=== PATIENT | female | born 1965 | race Caucasian/White ===

== ENCOUNTER 2016-08-27 07:19 | Emergency (ER) | payer OTHER ==
[~2016-08-27] VITALS: Ht 147.3 cm; Wt 62.6 kg
[~2016-08-27 07:19] MED LIST: IBU800 MG PO; MOBIC15 MG PO; MOTRIN800 MG PO; PROAIR HFA0.09 MG/Ac INH; ROBITUSSIN W/CO10 ML PO; ZITHROMAX Z-PA250 M1 PO
[2016-08-27 07:36] VITALS: BP 114/68
--- NOTE | 2016-08-27 07:52 | ED ANIMAL BITE/WOUND CHECK ---
History of Present Illness General Chief Complaint: General Adult Stated Complaint: SCRATCHED BY CAT NOW SWOLLEN R HAND Source: patient, old records Exam Limitations: no limitations Vital Signs & Intake/Output Vital Signs & Intake/Output Vital Signs Date Time Temp Pulse Resp B/P B/P Pulse O2 O2 Flow FiO2 Mean Ox Delivery Rate 08/27 0736 98.2 74 20 114/68 97 Room Air Allergies Coded Allergies: NO KNOWN ALLERGIES (01/13/13) Reconcile Medications Albuterol Sulfate (Proair Hfa) 0.09 MG/Actuation LUCINDA 2 PUFF INH Q4HR PRN WHEEZZING Azithromycin (Zithromax Z-Stalin) 250 MG CAP 1 DP PO AD BRONCHITIS 2 the first day followed by 1 for days 2-5 Azithromycin (Zithromax) 250 MG TABLET 1 DP PO AD cellulitis 2 the first day followed by 1 for days 2-5 Ibuprofen (Motrin) 800 MG TAB 1 TAB PO TID PAIN Ibuprofen (Ibu) 800 MG TAB 1 TAB PO TID PRN PAIN Meloxicam (Mobic) 15 MG TAB 1 TAB PO DAILY PRN PAIN Robitussin AC (Guaifenesin-Codeine Syrup) 10 ML UDC 10 ML PO Q6 PRN COUGH Triage Note: PT STATES SCRATCHED BY HER CAT YESTERDAY AND NOW RIGHT HAND SWOLLEN Triage Nurses Notes Reviewed? yes Onset: Abrupt Duration: day(s): (2), constant, getting worse Timing: recent history Injury Environment: home Is Injury an Animal Bite? Yes Animal Type: cat Context of Animal Attack: playing with animal Appearance of Animal: appeared well Observation/Capture: animal known/obs x10 days Severity of Attack: scratched Severity: mild Severity Numbers: 3 No Modifying Factors: none Associated Symptoms: DENIES HPI: 50-year-old female with history of arthritis presents to ER for evaluation status post sustaining scratches to her right hand yesterday while playing with her own cat. She states it as a 3 on her vaccinations. She states since then she's had progressively worsening swelling to her hands and mild aching nonradiating pain. She is right-hand dominant. There is no bite. No fever no chills the patient denies any streaking up her forearm no diaphoresis. She is otherwise without any complaints she's not sought care for the symptoms until today. No associated symptoms (MYNOR VAUGHN,PIOTR) Past History Travel History Traveled to [place] past 21 day No Medical History Any Pertinent Medical History? see below for history Neurological: NONE EENT: NONE Cardiovascular: NONE Respiratory: NONE Gastrointestinal: NONE Hepatic: NONE Renal: NONE Musculoskeletal: SPINAL STENOSIS ARTHRITIS Psychiatric: anxiety, depression Endocrine: NONE Blood Disorders: NONE Cancer(s): NONE PPAP COORDINATOR/Reproductive: NONE Surgical History Surgical History: non-contributory Psychosocial History What is your primary language Kazakh Tobacco Use: Current Daily Use Daily Tobacco Use Amount/Type: => 5 Cigarettes daily ETOH Use: denies use Illicit Drug Use: cocaine Family History Hx Contributory? No (PIOTR ABBASI) Review of Systems Review of Systems Constitutional: Reports: see HPI. All Other Systems: Reviewed and Negative Comments Review of systems: See HPI, All other systems negative. Constitutional, no chills no fever, no malaise HEENT: No visual changes no sore throat no congestion Cardiovascular: No chest pain , no palpitation Skin: no rashes, no change in skin Respiratory: No dyspnea no cough no sputum GI: No nausea no vomiting, no diarrhea, : No dysuria Muscle skeletal: No joint pain,, no back pain, no neck pain, Neurologic: No numbness, no headache Psych: No stress no depression,. Heme/endocrine: No bruising no bleeding Immunology: No lymphadenopathy (PIOTR ABBASI) Physical Exam Physical Exam General Appearance: well developed/nourished, no apparent distress, alert, awake Comments: Well-developed well-nourished patient in no apparent distress. HEENT: Atraumatic, extraocular motion intact Neck: Supple, FROM Back: FROM Cardiovascular: Regular rate and rhythms no murmurs rubs Respiratory: No respiratory distress. Patient speaking in full complete sentences. Breath sounds clear to auscultation bilaterally: NO W/R/R Shoulder: Atraumatic/Stable. FROM . Elbow: Atraumatic/stable. FROM. No laxity Upper arm/Forearm: Atraumatic. Nontender. No edema, 5 out of 5 gaming director strength noted to bilateral upper extremities Hand/Wrist: Superficial abrasions noted over the palmar aspect of the right hand with moderate swelling over the dorsal surface, warmth and no erythemastreaking up the skin there are no avulsions lacerations or puncture delgado/stable. FROM Pulses: Normal/equal radial pulses bilaterally. Brisk cap refill Lower Extremities: full range of motion Neuro: awake, alert, and oriented to person, place and time. There were no obvious focal neurologic abnormalities. Skin: Warm & dry;No appreciable rash on exposed skin Psych: Mood affect normal, normal memory normal judgment. (PIOTR ABBASI) Progress Differential Diagnosis: abscess, cellulitis, joint infection, tenosysnovitis, CAT SCRATCH DISEASE Plan of Care: I discussed with the patient at length all of their results. I had an extensive conversation regarding need for close follow up with their primary care physician this week as well as return precautions. I answered all of their questions, they feel comfortable with the plan and follow-up care. I discussed the medications that they will receive with the patient. I gave them signs and symptoms that could indicate an adverse reaction. I have advised them to limit their activities until they can see how they respond to the medication. (PIOTR ABBASI) Departure Departure Time of Disposition: 754 Disposition: HOME OR SELF CARE Condition: Stable Clinical Impression Primary Impression: Cellulitis Secondary Impressions: Cat scratch Referrals: CHARLY HARKINS APRN (PCP/Family) Additional Instructions: keep hand elevated. Azithromycin as directed. this was sent to [facility]. Follow-up with her primary care physician this week, return anytime sooner as discussed if you develops worsening swelling and redness to her hands streaking up her forearm fever or chills or if you have any other concerns. Departure Forms: Customer Survey General Discharge Information Prescriptions: Current Visit Scripts Azithromycin (Zithromax) 1 DP PO AD #6 TAB 2 the first day followed by 1 for days 2-5 (PIOTR ABBASI) PA/DELIVERY ANALYST Co-Sign Statement Statement: ED Attending supervision documentation- [] I saw and evaluated the patient. I have also reviewed all the pertinent lab results and diagnostic results. I agree with the findings and the plan of care as documented in the PA's/DELIVERY ANALYST's documentation. [X] I have reviewed the ED Record and agree with the PA's/DELIVERY ANALYST's documentation. [] Additions or exceptions (if any) to the PAs/DELIVERY ANALYST's note and plan are summarized below: [] (JULIANN MALONE,LEIDA)
[2016-08-27] MEDS ORDERED: ZITHROMAX250 M2 PO (07:59)
== END 2016-08-27 08:02 ==
LOC: ERH 07:19
DX: S60.511A Abrasion of right hand, initial encounter (principal); L03.113 Cellulitis of right upper limb; W55.03XA Scratched by cat, initial encounter

== ENCOUNTER 2017-08-08 10:11 | Inpatient (IN) | payer OTHER ==
[~2017-08-08] VITALS: Ht 147.3 cm; Wt 56.7 kg
[~2017-08-08 10:11] MED LIST changes: +DICLOFENAC SODI75 M2 PO; +FOLIC ACID1 M1 PO; +LYRICA150 M1 PO; +METHADONE HCL40 M1; +METHOTREXATE2.5 M2 PO; +PANTOPRAZOLE SO40 M1 PO; +PREDNISONE10 M2 PO; +PREDNISONE2.5 M1 PO; +PROAIR HFA8.5 GM INH; +SPIRIVA18 MCG INH; +SYMBICORT 16010.2 GM INH; +ZITHROMAX250 M2 PO
--- NOTE | 2017-08-08 11:28 | ED GENERAL ADULT ---
History of Present Illness General Chief Complaint: General Adult Stated Complaint: CONFUSION Source: patient, family Exam Limitations: no limitations Vital Signs & Intake/Output Vital Signs & Intake/Output Vital Signs Date Time Temp Pulse Resp B/P B/P Pulse O2 O2 Flow FiO2 Mean Ox Delivery Rate 08/08 1235 Room Air 08/08 1232 98.4 79 20 96/66 96 Room Air 08/08 1017 98.7 83 18 93/64 98 Room Air Allergies Coded Allergies: NO KNOWN ALLERGIES (01/13/13) Triage Note: 51 YO FEMALE TO TRIAGE, PT STATES SHE WAS SENT TO ER BY DR THORNTON. PER FAMILY, PT HAS HARD DARK URINE, STATES "THEY STARTED HER ON ANTIBITOICS LAST NIGHT" FAMILY UNSURE IF PT WAS DX WITH A UTI OR NOT. PT STATES "THEY TOLD ME TO COME GET AN US OF OF MY LIVER AND KIDNEYS" STATES ALSO C/O PRODUCTIVE COUGH-GREEN PHLEGM. PER FAMILY "SHE GOES IN AND OUT OF LUCIDITY" Triage Nurses Notes Reviewed? yes Onset: Gradual Duration: day(s): Timing: constant HPI: 51-year-old female with a history of asthma, spinal stenosis, arthritis, anxiety , depression presenting with cough productive of green sputum, right-sided chest pain, and dark urine over the past 3-4 days. Family reports that the patient has had new onset intermittent confusion and intermittent auditory/visual hallucinations over the past 1-2 weeks. Seen by her PMD and had outpatient labs that were relatively unremarkable. Sent in by PMD for eval. No head trauma. Denies fevers, nasal congestion, rhinorrhea, sore throat, shortness of breath, abdominal pain, vomiting, diarrhea, dysuria. No recent sick contacts or travel. Patient currently has no confusion or hallucinations at this time. (Elaine VAUGHN,Suzanne) Reconcile Medications Albuterol Sulfate (Proair Hfa) 90 MCG HFA.AER.AD 2 PUF INH Q4-6 PRN PRN COPD . Azithromycin 250 MG TABLET 1 DP PO AD ABX (Reported) 2 the first day followed by 1 for days 2-5 Budesonide/Formoterol Fumarate (Symbicort 160-4.5 Mcg Inhaler) 160 MCG-4.5 MCG/ ACTUATION HFA.AER.AD 2 PUF INH BID COPD . Diclofenac Sodium 75 MG TABLET.DR 1 TAB PO BID PAIN/INFLAMMATION (Reported) Fluticasone Propionate 50 MCG/ACTUATION SPRAY.SUSP 1 SPRAY NASB DAILY NASAL CONGESTION (Reported) Methadone HCl 10 MG/ML ORAL.CONC 80 MG PO DAILY MENTAL HEALTH/CHRONIC PAIN ( Reported) Prednisone (Unknown Strength) TABLET (Unknown Dose) PO AD STEROID (Reported) Pregabalin (Lyrica) 150 MG CAPSULE 1 CAP PO TID NERVE PAIN (Reported) Tiotropium [place] (Spiriva) 18 MCG CAP.W.DEV 1 PUF INH DAILY COPD . (Herminio Norwood MD) Past History Travel History Traveled to [place] past 21 day No Medical History Any Pertinent Medical History? 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 Hx Contributory? No (Suzanne Pruett) Review of Systems Review of Systems Constitutional: Reports: no symptoms. EENTM: Reports: no symptoms. Respiratory: Reports: cough. Denies: short of breath, wheezing. Cardiovascular: Reports: chest pain. Denies: edema, palpitations. GI: Reports: no symptoms. Genitourinary: Reports: no symptoms. Musculoskeletal: Reports: no symptoms. Skin: Reports: no symptoms. Neurological/Psychological: Reports: confusion. Denies: ataxia, headache, numbness, paresthesia, tingling. Hematologic/Endocrine: Reports: no symptoms. Immunologic/Allergic: Reports: no symptoms. (Suzanne Pruett) Physical Exam Physical Exam General Appearance: well developed/nourished, no apparent distress, alert, awake , comfortable Head: atraumatic, normal appearance Eyes: Bilateral: PERRL, EOMI. Ears, Nose, Throat: normal ENT inspection Neck: normal inspection, supple, full range of motion Respiratory: normal breath sounds, lungs clear Cardiovascular: regular rate/rhythm, normal peripheral pulses Gastrointestinal: soft, non-tender Back: normal inspection, No CVAT Extremities: normal inspection Neurologic/Psych: no motor/sensory deficits, awake, alert, oriented x 3, normal gait, normal mood/affect, commercial credit portfolio manager II-XII nml as tested, Normal cerebellar function. Reflexes: 2+: bicep (R), bicep (L), tricep (L), tricep (L), knee (R), knee (L), ankle (R), ankle (L). Skin: intact, normal color, warm/dry Core Measures ACS in differential dx? No CVA/TIA Diagnosis: No Sepsis Present: No Sepsis Focused Exam Completed? No (Elaine VAUGHN,Suzanne) Progress Differential Diagnoses I considered the following diagnoses in my evaluation of the patient: [Infection versus metabolic derangement versus dehydration versus intracranial bleeding versus intracranial mass versus new onset psychosis] Plan of Care: Orders Procedure Date/time Status Regular Diet 08/09 D Active CBC WITHOUT DIFFERENTIAL 08/09 0600 Active BASIC ELECTROLYTES PLUS BUN&CR 08/09 0600 Active Pathway - chart 08/08 1534 Active House Staff 08/08 1534 Active Patient Data 08/08 1534 Active Patient Data 08/08 1521 Active OXYGEN SETUP (GEN) 08/08 1453 Active Saline Lock 08/08 1453 Active Admit to inpatient 08/08 1453 Active Vital Signs 08/08 1453 Active Activity/Ambulation 08/08 1453 Active Code Status 08/08 1453 Active LACTIC ACID 08/08 1430 Active EKG 08/08 1355 Active Intake & Output 08/08 1344 Active CULTURE,URINE 08/08 1130 Active BLOOD CULTURE 08/08 1130 Active URINALYSIS 08/08 1130 Active PROTHROMBIN TIME 08/08 1130 Complete AMMONIA 08/08 1130 Complete LIPASE 08/08 1130 Complete LACTIC ACID 08/08 1130 Complete DIRECT BILIRUBIN 08/08 1130 Complete COMPREHENSIVE METABOLIC PANEL 08/08 1130 Complete CBC WITHOUT DIFFERENTIAL 08/08 1130 Complete VTE Mechanical Prophylaxis 08/08 UNK Active Current Medications Sig/Maribeth Start time Last Medication Dose Stop Time Status Admin Enoxaparin Sodium 40 MG DAILY 08/09 0900 UNVr (Lovenox) Acetaminophen 650 MG Q6P PRN 08/08 1545 UNVr (Tylenol) Oxycodone/ 2 TAB QAM PRN 08/08 1545 UNVr Acetaminophen (Percocet) Laboratory Tests 08/08/ 1215: Anion Gap 10, Estimated GFR > 60, BUN/Creatinine Ratio 20.0, Glucose 95, Lactic Acid 0.9, Calcium 8.4, Total Bilirubin 0.6, Direct Bilirubin 0.5 H, AST 26, ALT 34, Alkaline Phosphatase 112, Ammonia < 9 L, Total Protein 6.6, Albumin 3.1 L, Globulin 3.5, Albumin/Globulin Ratio 0.9 L, Lipase 15 L, PT 14.5 H, INR 1.33 H, CBC w Diff NO MAN DIFF REQ, RBC 3.89 L, MCV 75.2 L, MCH 25.4 L, MCHC 33.8, RDW 17.1 H, MPV 8.1, Gran % 79.9 H, Lymphocytes % 13.1 L, Monocytes % 5.9, Eosinophils % 0.7, Basophils % 0.4, Absolute Granulocytes 6.4, Absolute Lymphocytes 1.0 L, Absolute Monocytes 0.5, Absolute Eosinophils 0.1, Absolute Basophils 0 Microbiology 08/08 1225 BLOOD: Blood Culture - RECD 08/08 1215 BLOOD: Blood Culture - RECD 08/08 1130 URINE ROUT: Urine Culture - ORD CT head unremarkable. Chest x-ray shows right upper lobe pneumonia. EKG has no ischemic changes. Labs unremarkable. Patient has not yet given urine sample. Given the family's reported history of confusion and hallucinations, will admit for IV antibiotics. If patient continues to have confusion and hallucinations after resolution of pneumonia, patient should have a psychiatric consult prior to discharge. Initial ED EKG: NSR, rate (74), no ST T wave changes (Suzanne Pruett) Departure Departure Disposition: STILL A PATIENT Condition: Stable Clinical Impression Primary Impression: Pneumonia Secondary Impressions: Confusion, Hallucination Referrals: Denise Thornton DO (PCP/Family) Departure Forms: Customer Survey General Discharge Information Admission Note Spoke With: Enrico Chacko MD Documentation of Exam: Documentation of any treatments & extenuating circumstances including Concerns Regarding Discharge (functional status, medication knowledge or non-compliance, living conditions, etc.) that warrant an admission rather than observation: [IV antibiotics, IV fluids, possible psychiatric evaluation] (Suzanne Pruett) PA/REHAB DIRECTOR OCCUPATIONAL THERAPIST Co-Sign Statement Statement: ED Attending supervision documentation- x I saw and evaluated the patient. I have also reviewed all the pertinent lab results and diagnostic results. I agree with the findings and the plan of care as documented in the PA's/REHAB DIRECTOR OCCUPATIONAL THERAPIST's documentation. Productive cough, confusion: pneumonia [] I have reviewed the ED Record and agree with the PA's/REHAB DIRECTOR OCCUPATIONAL THERAPIST's documentation. [] Additions or exceptions (if any) to the PAs/REHAB DIRECTOR OCCUPATIONAL THERAPIST's note and plan are summarized below: [] (Enma MALONE,Herminio) Critical Care Note Critical Care Note Critical Care Time: non-applicable (Suzanne Pruett) ED Attending Observation Initial Observation Note: I have seen and personally examined MERI GONZALEZ on 08/08/17 at 1556. I agree with the current emergency department documentation. The disposition (admission or discharge) is uncertain at this time, she needs a period of observation for the following reason(s): The ED Nurse caring for this patient has been personally informed as to what the patient is being observed for. (Suzanne Pruett)
[2017-08-08 12:25] LABS: ABSOLUTE BASOPHIL COUNT 0 /CUMM (0.0-0.2); ABSOLUTE EOSINOPHIL COUNT 0.1 /CUMM (0.0-0.7); ABSOLUTE GRANULOCYTE CT 6.4 /CUMM (1.4-6.5); ABSOLUTE MONOCYTE COUNT 0.5 /CUMM (0.10-0.60); BASOPHIL % 0.4 % (0.0-2.0); EOSINOPHIL % 0.7 % (0-5); GRANULOCYTE % 79.9 % (42.2-75.2); MEAN CORPUSCULAR HGB 25.4 PG (27.0-31.0); MEAN CORPUSCULAR HGB CONC 33.8 G/DL (33.0-37.0); MEAN CORPUSCULAR VOLUME 75.2 FL (81.0-99.0); MEAN PLATELET VOLUME 8.1 FL (7.4-10.4); PLATELET COUNT 473 /CUMM (130-400); RBC DISTRIBUTION WIDTH 17.1 % (11.5-14.5); RED BLOOD CELL CT 3.89 /CUMM (4.20-5.40)
[2017-08-08 12:29] LABS: HEMATOCRIT 29.2 % (37-47)
[2017-08-08 12:31] LABS: PT 14.5 SEC (9.4-12.5)
--- NOTE | 2017-08-08 13:27 | CT SCAN REPORT ---
EXAMINATION: CT HEAD WITHOUT CONTRAST CLINICAL INFORMATION: New onset hallucinations. Assess for mass. COMPARISON: None. TECHNIQUE: Contiguous axial imaging was performed from the skull base to vertex without intravenous administration of contrast. Images are slightly degraded by patient motion artifact. DLP: 608.78 mGy-cm FINDINGS: There is no evidence of acute intracranial hemorrhage or territorial infarction. No abnormal mass effect or midline shift is seen. June to white matter differentiation is well preserved. No extra-axial fluid collections are identified. The ventricles are normal in size. There is no abnormal attenuation within the brain parenchyma. There are no acute osseous findings. There are bilateral moderate to severe arthropathic changes of the temporomandibular joints. The mastoid air cells and visualized portions of the paranasal sinuses are well aerated. IMPRESSION: 1. There are no acute bleeds or territorial infarcts. No masses are demonstrated. 2. There are arthropathic changes of the bilateral temporomandibular joints.
--- NOTE | 2017-08-08 13:28 | RADIOLOGY REPORT ---
EXAMINATION: XR CHEST CLINICAL INFORMATION: Cough and sputum COMPARISON: Chest x-ray most recent prior dated 02/19/2017 TECHNIQUE: 2 views of the chest were obtained. FINDINGS: New consolidation right upper lobe suspicious for lobar type pneumonia. Remaining lungs are well aerated. Degenerative changes noted in the spine. IMPRESSION: Significant consolidation right upper lobe compatible with pneumonia. Follow-up chest x-ray after treatment recommended.
--- NOTE | 2017-08-08 15:37 | History & Physical ---
[facility]30[facility] General Information and HPI MD Statement: I have seen and personally examined MERI GONZALEZ and documented this H&P. The patient is a 51 year old F who presented with a patient stated chief complaint of confusion, cough with sputum and right-sided chest pain for last 1 week []. Source of Information: patient, old records Exam Limitations: no limitations History of Present Illness: 51 YO F obese, smoker (<5 cigarettes/d) with PMH of asthma/COPD, HANNAH on 2L home O2 at night time or exertion, CPAP at night time, spinal stenosis, rheumatoid arthritis, osteoarthritis, fibromyalgia, anxiety and depression presented to ED with chief complaint of confusion, cough with sputum and right-sided chest pain for last 1 week. Patient reported that she was in her usual state of health one -week pack when he started to have cough with sputum. According to patient cough is intermittent and she is bringing phlegm with it that's yellow to brownish in color without any blood streaks associated with right-sided chest pain during the coughing episode. Patient reported that her chest pain is intermittent and it comes with cough and increases with taking the breaths per patient also reported that her sister noticed that she was looking confused and having some visual and auditory hallucinations. But patient denied auditory or visual hallucination at this time. Patient reported that she went to her primary care physician Denise Marie DO on Friday and she took some blood and urine cultures and started her on Z-Stalin and she took only 2 pills. According to patient her appetite has been decreased and she is just taking liquids. Patient denied palpitations, shortness of breath, nausea, vomiting, chills, fever, trauma, sick contacts, trauma to the chest, visual and auditory hallucinations, abdominal pain and dysuria. Patient having history of osteoarthritis or rheumatoid arthritis and she is following Dr. Walker at [place] for last 2 years. Patient was initially on methotrexate but due to her oral ulcers it was discontinued. Later on patient was put on prednisone 5 mg and later on it status was decreased to 2.5 mg every day. The patient reported she is not taking any prednisone and she discontinued by herself. Last week patient got intra-articular steroid injection for her knee osteoarthritis. Last time she was admitted in February 2017 with acute hypoxic respiratory failure due to COPD exacerbation. On discharge she was put on 2 L of oxygen because her saturation dropped to 87% on exertion. Since then she cut down her smoking from half a pack per day to less than 5 cigarettes per day. ED course: Vitals: Temperature 98.7, pulse 83, respiratory rate 18, blood pressure 93/64, oxygen saturation 98% on room air Labs: WBC count 8.0, hemoglobin 9.9, hematocrit 29.2, platelet count 473, sodium 138, potassium 4.4, BUN 14, creatinine 0.7, anion gap 10, lactic acid 0.9, BUN/ creatinine ratio 20.0, AST 26, ALT 34, ammonia less than 9, direct bilirubin 0.5 , lipase 15, INR 1.33 Patient received 1 dose of azithromycin and ceftriaxone in ED Blood cultures and urine cultures were obtained in ED. Allergies/Medications Allergies: Coded Allergies: NO KNOWN ALLERGIES (01/13/13) Home Med list Albuterol Sulfate (Proair Hfa) 90 MCG HFA.AER.AD 2 PUF INH Q4-6 PRN PRN COPD . Azithromycin 250 MG TABLET 1 DP PO AD ABX (Reported) 2 the first day followed by 1 for days 2-5 Budesonide/Formoterol Fumarate (Symbicort 160-4.5 Mcg Inhaler) 160 MCG-4.5 MCG/ ACTUATION HFA.AER.AD 2 PUF INH BID COPD . Diclofenac Sodium 75 MG TABLET.DR 1 TAB PO BID PAIN/INFLAMMATION (Reported) Fluticasone Propionate 50 MCG/ACTUATION SPRAY.SUSP 1 SPRAY NASB DAILY NASAL CONGESTION (Reported) Methadone HCl 10 MG/ML ORAL.CONC 80 MG PO DAILY MENTAL HEALTH/CHRONIC PAIN ( Reported) Prednisone (Unknown Strength) TABLET 2.5 PO AD STEROID (Reported) Pregabalin (Lyrica) 150 MG CAPSULE 1 CAP PO TID NERVE PAIN (Reported) Tiotropium [place] (Spiriva) 18 MCG CAP.W.DEV 1 PUF INH DAILY COPD . 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 Psychosocial History Services at Home: None Living Will? no Functional Ability ADLs Independent: dressing, eating, toileting, bathing. Ambulation: independent, SEE hpi FOR DETAILS IADLs Independent: shopping, housework, finances, food prep, telephone, transportation , medication admin. Review of Systems Review of Systems Constitutional: Denies: chills, fever. EENTM: Reports: no symptoms. Cardiovascular: Reports: chest pain. Denies: orthopena, palpitations. Respiratory: Reports: cough, sputum production. Denies: short of breath, wheezing. GI: Denies: abdominal pain, constipation, diarrhea, melena, nausea. Genitourinary: Reports: no symptoms. Musculoskeletal: Reports: back pain. Neurological/Psychological: Reports: see HPI. Exam & Diagnostic Data Last 24 Hrs of Vital Signs/I&O Vital Signs Date Time Temp Pulse Resp B/P B/P Pulse O2 O2 Flow FiO2 Mean Ox Delivery Rate 08/08 1235 Room Air 08/08 1232 98.4 79 20 96/66 96 Room Air 08/08 1017 98.7 83 18 93/64 98 Room Air Intake & Output 08/08 1600 08/08 0800 08/08 0000 Intake Total 1000 Output Total Balance 1000 Intake, IV 1000 Patient 144 lb Weight Weight Reported by Patient Measurement Method Physical Exam General Appearance Alert, Oriented X3, Cooperative Skin No Rashes Skin Temp/Moisture Exam: Warm/Dry Sepsis Skin Exam (color): Normal for Ethnicity HEENT Atraumatic, PERRLA, EOMI Neck Supple Cardiovascular Normal S1, Normal S2 Lungs B/L bronchospasm Abdomen Soft, No Tenderness Neurological Normal Speech, Strength at 5/5 X4 Ext, Normal Tone, Sensation Intact Extremities No Edema Assessment/Plan Assessment: 51 YO F obese, smoker (<5 cigarettes/d) with PMH of asthma/COPD, HANNAH on 2L home O2 at night time or exertion, CPAP at night time, spinal stenosis, rheumatoid arthritis, osteoarthritis, fibromyalgia, anxiety and depression presented to ED with chief complaint of confusion, cough with sputum and right-sided chest pain for last 1 week. Plan admit the patient on general medicine floor appropriate for further problems. Community-acquired pneumonia: -Outpatient treatment failure. -Her hallucinations were possibly due to pneumonia. But now patient denied hallucinations. -Supplemental oxygen if needed to keep oxygen saturation above 92% -TRC nebulization if needed -IV ceftriaxone and azithromycin -Follow blood cultures -Follow-up sputum cultures -Urine strep and Legionella antigen -Incentive spirometer -Chest physiotherapy History of obstructive sleep apnea/COPD: -Continue CPAP at nighttime -Continue spiriva and symbicort History of rheumatoid arthritis: -Patient is not taking any methotrexate and folic acid. She was put on 5 mg prednisone that has decreased to 2.5 mg every day. But patient discontinue to take it by herself. -We will give patient stress dose predinsone 40mg for 5 days and comtinue later on her home dose. History of spinal stenosis: -Continue pregabalin History of opiate dependency: -Continue methadone 80mg/day -Confirm dose of methadone in am from [facility] H/O anxiety and depression: -Continue home medications. DVT prophylaxis: Mechanical and subcutaneous heparin CODE STATUS: Full code As Ranked By This Provider Problem List: 1. CAP (community acquired pneumonia) Core Measures/Misc (12/29) Acute Coronary Syndrome ACS Diagnosis: No Congestive Heart Failure Congestive Heart Failure Diagnosis No Cerebrovascular Accident CVA/TIA Diagnosis: No VTE (View Protocol) VTE Risk Factors Age>40 No Mechanical VTE Prophylaxis d/t N/A MechProphylax Ordered No VTE Pharm Prophylaxis d/t NA PharmProphylax ordered Sepsis (View protocol) Sepsis Present: No Enrico Chacko MD 08/08/17 1621: Attending MD Review Statement Attending Statement Attending MD Statement: examined this patient, discuss w/resident/PA/[employer], agreed w/resident/PA/[employer], reviewed EMR data (avail) Attending Assessment/Plan: 51F PMH asthma, anxiety, depression, spinal stenosis, rheumatoid arthritis, and questionable diagnosis of COPD, recently diagnosed with pneumonia as outpatient and started on antibiotics 1 day prior to admission, here with worsening of fever, weakness, and cough with green sputum. Also reports by family of intermittent episodes of visual and auditory hallucinations over the past 1-2 weeks, though none at this time. Coarse breath sounds bilaterally on exam, looks ill, exam otherwise normal. CXR shows bilateral infiltrates and pleural effusions, afebrile, normal WBC. Plan: Ceftriaxone, Azithro, psychiatry, check S.pneumo and Legionella antigen, Solumedrol, nebulizers, psychiatry consult. If fever or altered may consider LP. Shaina Logan 08/08/17 9346: Resident Review Statement Resident Statement: examined this patient, discussed with summer internship, agreed with summer internship Other Findings: Patient is a 51-year-old obese woman with past medical history significant for recently diagnosed mild obstructive disease(COPD) on as needed nocturna l as needed oxygen 12 L, immunocompromised, prednisone dependent rheumatoid arthritis , history of anxiety and depression, history of chronic opioid dependence currently on methadone presented to the ER with a chief complaints of worsening productive cough and hallucinations. Patient mentioned that for the last 1 week she has not been feeling well having productive cough with some trouble breathing, has no appetite. According to sister(lives with her) she was noted to have both visual and auditory hallucinations as well. Due to the above concerns she was evaluated by her primary care physician on this Friday, blood work was done at her office and she was started on Z-Stalin and a nasal spray. Patient denied any sick contacts or recent travels Patient took the medication without improvement in her symptoms, was brought in to the ER today for further assessment. In the ER at the time of evaluation patient was alert and oriented 3 denied any more hallucinations. She was slightly hypotensive received 1 bolus of normal saline. Chest x-ray was evident for pneumonia she was given 1 time dose of IV ceftizoxime and azithromycin after sending the cultures. Upon inquiring, patient is chronically dependent on prednisone recently decreased to 2.5 mg daily. She stopped the medication about a week ago(when she started getting sick), currently off methotrexate as well. Patient has a history of chronic opioid dependence currently taking methadone (80 mg )from [facility] General Appearance: Alert, No Acute Distress Skin: Grossly normal HEENT: PEERLA Neck: Supple, No JVD Cardiovascular: Regular Rate, Normal S1, Normal S2, No Murmurs Lungs: Slight expiratory wheeze with rhonchi on the right upper lung abraham Abdomen: Normal Bowel Sounds, Soft, No Tenderness Neurological: Normal Speech, Strength at 5/5 X4 Ext, Cranial Nerves 3-12 NL, Reflexes 2+ Extremities: No Clubbing, No Cyanosis, No Edema Vascular: Normal Pulses . ED course vitals temperature: 98.7, pulse 83, respiratory rate 18, blood pressure 93/64 improved to 102/60 on room air. Pertinent labs normal WBC count H&H normal bep Chest x-ray : Significant consolidation right upper lobe compatible with pneumonia. CT head negative for any acute intracranial pathology. Assessment and plan Patient is a 51-year-old obese with multiple comorbidities including recently diagnosed mild obstructive disease(COPD) on as needed nocturnal as needed oxygen 12 L, immunocompromised, prednisone dependent rheumatoid arthritis, history of anxiety and depression, history of chronic opioid dependence currently on methadone presented to the ER with a chief complaints of worsening productive cough and hallucinations,chest x-ray findings are evident for pneumonia. Problem lisT Community acquired pneumonia(outpatient treatment failure) Hallucinations now resolved(likely in the setting of active infection/pneumonia) History of chronic prednisone-dependent rheumatoid arthritis History of chronic opioid dependence currently on methadone History of anxiety and depression PLAN Community acquired pneumonia(outpatient treatment failure) * As patient didn't improve after getting outpatient azithromycin will admit the patient to Gen[facility] floor. * Patient received IV ceftizoxime and azithromycin in the ER will continue with the same antibiotics. * Cultures have been sent will obtain sputum cultures as well and strep pneumo and Legionella antigens. * Blood pressure currently stable we'll continue with IV hydration for now. * Monitor vitals every 4 hours. * Watch for any hemodynamic instability. Hallucinations now resolved(likely in the setting of active infection/pneumonia) * Neurochecks every 4-6 hours. History of chronic prednisone-dependent rheumatoid arthritis * Will hold off home dose of prednisone for now, as patient is currently sick and hospitalized for pneumonia,will give her stress dose of prednisone 40 mg daily for 5 days, and then continue her usual dose of prednisone. History of mild obstructive disease(COPD) * Continue nocturnal oxygen as needed to keep saturations above 92%. * Patient is currently stable is not short of breath with mild wheeze so will hold off any Solu-Medrol for now, if at any point patient gets worse with more shortness of breath and wheezing will start her on Solu-Medrol. * Continue Spiriva and Symbicort. History of chronic opioid dependence currently on methadone * She currently takes 80 g of methadone didn't take her medication today(will give one-time dose of methadone 80 mg) * Confirm medication from the clinic tomorrow. History of anxiety and depression * Continue Lyrica 4.Mild pain pathway with Tylenol 5. DVT prophylaxis subcutaneous Lovenox 6. Patient is full code
[2017-08-08] MEDS ORDERED: METHADONE10 MG/1 M2 PO (15:54)
[2017-08-08] MEDS ORDERED: FLUTICASONE PRO16 GM NASB (15:56)
[2017-08-08] MEDS ORDERED: AZITHROMYCIN250 M1 PO (15:57)
[2017-08-08] MEDS ORDERED: PREDNISONE2.5 M1 PO (16:02)
[2017-08-08 17:30] VITALS: BP 102/56
[2017-08-08 21:47] VITALS: BP 118/50
--- NOTE | 2017-08-09 06:13 | PN- Housestaff ---
See Addendum Subjective Follow-up For: Community-acquired pneumonia Subjective: No overnight events. Patient remained afebrile. Seen and examined this morning. Patient reported having cough and whitish colored sputum. Patient denied any chest pain, shortness of, nausea, vomiting, chills, fever, hallucinations, abdominal pain dysuria. Her methadone dose was confirmed from [facility] in [place]. She is taking 80 mg of methadone every day. Review of Systems Constitutional: Denies: chills, fever. EENTM: Reports: no symptoms. Cardiovascular: Denies: chest pain, palpitations. Respiratory: Reports: cough, sputum production. Denies: short of breath. Gastrointestinal: Denies: abdominal pain, constipation, diarrhea, nausea. Genitourinary: Reports: no symptoms. Musculoskeletal: Reports: see HPI. Neurological/Psychological: Reports: no symptoms. Objective Last 24 Hrs of Vital Signs/I&O Vital Signs Date Time Temp Pulse Resp B/P B/P Pulse O2 O2 Flow FiO2 Mean Ox Delivery Rate 08/09 0654 98.0 80 20 106/58 91 08/09 0000 Room Air 08/08 2200 98.1 08/08 2147 99.4 62 20 118/50 93 Room Air 08/08 2056 101.4 08/08 1930 101.5 08/08 1753 101.5 08/08 1730 101.5 88 18 102/56 92 Room Air 08/08 1646 97.9 84 16 102/60 96 Room Air 08/08 1644 97.5 82 18 97/54 96 08/08 1235 Room Air 08/08 1232 98.4 79 20 96/66 96 Room Air 08/08 1017 98.7 83 18 93/64 98 Room Air Intake & Output 08/09 0800 08/09 0000 08/08 1600 Intake Total 300 1000 Output Total Balance 300 1000 Intake, IV 300 1000 Patient 125 lb 144 lb Weight Weight Reported by Patient Reported by Patient Measurement Method Physical Exam General Appearance: Alert, Oriented X3, Cooperative Skin: No Rashes Skin Temp/Moisture Exam: Warm/Dry Sepsis Skin Exam (color): Normal for Ethnicity HEENT: Atraumatic, PERRLA, EOMI Neck: Supple Cardiovascular: Normal S1, Normal S2 Lungs: Clear to Auscultation Abdomen: Soft, No Tenderness Neurological: Normal Speech, Strength at 5/5 X4 Ext, Normal Tone Extremities: No Edema Assessment/Plan Assessment: 51 YO F obese, smoker (<5 cigarettes/d) with PMH of asthma/COPD, HANNAH on 2L home O2 at night time or exertion, CPAP at night time, spinal stenosis, rheumatoid arthritis, osteoarthritis, fibromyalgia, anxiety and depression presented to ED with chief complaint of confusion, cough with sputum and right-sided chest pain for last 1 week. We are following the patient for following problems: Community-acquired pneumonia: -Outpatient treatment failure. -Patient is on room air and maintaining saturation 91%. -TRC nebulization if needed -IV ceftriaxone and azithromycin. Day 2 -Follow blood cultures -Follow-up sputum cultures -Urine strep and Legionella antigen -Incentive spirometer -Chest physiotherapy History of obstructive sleep apnea/COPD: -Continue CPAP at nighttime -Continue spiriva and symbicort History of rheumatoid arthritis: -Patient is not taking any methotrexate and folic acid. She was put on 5 mg prednisone that has decreased to 2.5 mg every day. But patient discontinue to take it by herself. -We will give patient stress dose predinsone 40mg for 5 days and comtinue later on her home dose. History of spinal stenosis: -Continue pregabalin History of opiate dependency: -Continue methadone 80mg/day -Dose was confirmed from [facility]. H/O anxiety and depression: -Continue home medications. DVT prophylaxis: Mechanical and subcutaneous heparin CODE STATUS: Full code Problem List: 1. CAP (community acquired pneumonia) Pain Ratin Pain Location: none Pain Goal: Remain pain free Pain Plan: pain pathway Tomorrow's Labs & Rationales: cbc/bep
[2017-08-09 06:54] VITALS: BP 106/58
[2017-08-09 10:42] LABS: ABSOLUTE BASOPHIL COUNT 0 /CUMM (0.0-0.2); ABSOLUTE EOSINOPHIL COUNT 0 /CUMM (0.0-0.7); ABSOLUTE GRANULOCYTE CT 5.1 /CUMM (1.4-6.5); ABSOLUTE LYMPH COUNT 0.8 /CUMM (1.2-3.4); ABSOLUTE MONOCYTE COUNT 0.1 /CUMM (0.10-0.60); BASOPHIL % 0.1 % (0.0-2.0); EOSINOPHIL % 0.1 % (0-5); HEMATOCRIT 27.3 % (37-47); MEAN CORPUSCULAR HGB CONC 32.9 G/DL (33.0-37.0); MEAN CORPUSCULAR VOLUME 75.9 FL (81.0-99.0); MEAN PLATELET VOLUME 8.2 FL (7.4-10.4); PLATELET COUNT 429 /CUMM (130-400)
[2017-08-09 14:42] VITALS: BP 100/52
--- NOTE | 2017-08-09 21:18 | ED PSYCHIATRIST/APRN CONSULT ---
Psychiatrist/INFORMATION TECHNOLOGY SECURITY ANALYST ED Consult Assessment and Plan: Met patient, who was calm and eating her dinner. She has a history of smoking, obesity, asthma, COPD, on home oxygen, cpap, with spinal stenosis, RA, OA, fibromyalgia, methadone maintenance, anxiety and depressive sx, she was admitted with confusion cough and chest pain. She also had been experiencing hallucinations and confused over the last week. Consult called for recent hallucinations and hx anxiety/depressive sx. She denied any recent hallucinations, stated she didn't recall the content, stated that they occured infrequrntly over the last week. Said that over a week ago she had a 'detox' and stopped all of her meds for 4 days and stayed in her home in bed for that time, afterward feeling worse and having some confusion and hallucinations per her sister whom she lives with. sleep, appetite and energy unchanged. Not suicidal, not depressed, not angry or down. Stated that she sees a [facility] in [facility] in [place] , about twice per month. Stated that she was on zoloft, prozac and perhaps abilify int he past to augment her depressive sx, last taken a few years ago. Denied being on any other antipsychotics and denied being on any mood stabilizers, said that 'abilify or something else just a little bit to help the prozac work." She denied having any suicide attempts, IP admissions or suicidal thoughts. She denied any recent paranoia or oddness in thinking or confusion apart from the last week. She lives with her sister, is in contact with her children, worked until a few years ago due to her medical condition becoming disabled. On methadone, denied other drug or alcohol use. MSE - unremarkable; obese woman, fair grooming, well related and pleasant. speech, affect thought process all normal. Mood was neutral. Insight and judgment adequate. IMp: hallucinations/confusion likely secondary to her self discontinuing meds for a few days and infectious process/mild delirium, appears to have resolved. Does not need further psychiatric eval at this time. Discussed re-introducing SSRI if she is unable to cope w/ medical conditions or is having anhedonia/ withdrawal/severe depression/.changes in appetite or sleep. Please call back if there are any behavioral issues or she begins to experience hallucinations or disorganization again.
[2017-08-09 22:35] VITALS: BP 121/65
[2017-08-10 06:42] VITALS: BP 112/70
[2017-08-10 08:45] LABS: ABSOLUTE BASOPHIL COUNT 0 /CUMM (0.0-0.2); ABSOLUTE EOSINOPHIL COUNT 0 /CUMM (0.0-0.7); ABSOLUTE GRANULOCYTE CT 7.6 /CUMM (1.4-6.5); ABSOLUTE LYMPH COUNT 1.7 /CUMM (1.2-3.4); ABSOLUTE MONOCYTE COUNT 0.6 /CUMM (0.10-0.60); BASOPHIL % 0.2 % (0.0-2.0); EOSINOPHIL % 0.3 % (0-5); GRANULOCYTE % 76.5 % (42.2-75.2); HEMATOCRIT 25.1 % (37-47); MEAN CORPUSCULAR HGB 25.2 PG (27.0-31.0); MEAN CORPUSCULAR HGB CONC 32.8 G/DL (33.0-37.0); MEAN CORPUSCULAR VOLUME 76.8 FL (81.0-99.0); PLATELET COUNT 441 /CUMM (130-400); RBC DISTRIBUTION WIDTH 17.8 % (11.5-14.5); RED BLOOD CELL CT 3.26 /CUMM (4.20-5.40)
--- NOTE | 2017-08-10 09:23 | PN- Housestaff ---
Carl Hardy MD,Ami 08/10/17 0922: Subjective Follow-up For: Community-acquired pneumonia Subjective: Patient visited today, was sitting at the bedside in no acute distress, was alert and oriented. still has cough and sputum. No fever or chills, improved shortness of breathing, no chest pain, no other events. Patient was asking regarding discharg. informed plan of care dand need for sensitivity results. Administered one dose of vancomycin. Review of Systems Constitutional: Reports: see HPI. Objective Last 24 Hrs of Vital Signs/I&O Vital Signs Date Time Temp Pulse Resp B/P B/P Pulse O2 O2 Flow FiO2 Mean Ox Delivery Rate 08/10 0800 96 Room Air 08/10 0642 98.0 80 18 112/70 95 08/10 0000 Room Air 08/09 2235 98.4 76 18 121/65 94 Room Air 08/09 1442 98.4 84 20 100/52 94 Room Air Intake & Output 08/10 1600 08/10 0800 08/10 0000 Intake Total 3085 840 2712 Output Total 900 Balance 1350 800 570 Intake, IV 800 800 670 Intake, Oral 550 800 Number 0 Bowel Movements Output, Urine 900 Physical Exam General Appearance: Alert, Oriented X3, Cooperative, No Acute Distress Skin: No Significant Lesion Skin Temp/Moisture Exam: Warm/Dry Sepsis Skin Exam (color): Normal for Ethnicity HEENT: Atraumatic, EOMI Cardiovascular: Normal S1, Normal S2 Lungs: decreased breating sounds, ronchi Abdomen: Soft, No Tenderness Current Medications: Current Medications Sig/Maribeth Start time Last Medication Dose Route Stop Time Status Admin Acetaminophen 650 MG Q6P PRN 08/08 1545 AC PO Azithromycin 500 MG 1400 08/09 1400 08/10 Sodium Chloride 250 ML IV 1306 Budesonide/ 2 PUF BID 08/08 2100 08/10 Formoterol Fumarate INH 0816 Ceftriaxone Sodium 1,000 MG 1400 08/09 1400 AC 08/10 IV 1258 Enoxaparin Sodium 40 MG DAILY 08/09 0900 AC 08/10 SC 0816 Methadone HCl 80 MG DAILY 08/09 0900 AC 08/10 PO 0816 Prednisone 40 MG DAILY 08/08 1900 AC 08/10 PO 08/12 1000 0816 Pregabalin 150 MG TIDAC 08/08 1700 AC 08/10 PO 1257 Sodium Chloride 1,000 ML Q10H 08/08 1700 AC 08/10 IV 0817 Tiotropium Dorena 1 PUF DAILY 08/08 1657 AC 08/10 INH 0816 Vancomycin HCl 1,000 MG ONCE ONE 08/10 1430 UNir Sodium Chloride 250 ML IV 08/10 1529 Last 24 Hrs of Lab/Ritchie Results Last 24 Hrs of Labs/Mics: Laboratory Tests 08/10/17 0710: CBC w Diff NO MAN DIFF REQ, RBC 3.26 L, MCV 76.8 L, MCH 25.2 L, MCHC 32.8 L, RDW 17.8 H, MPV 8.0, Gran % 76.5 H, Lymphocytes % 16.6 L, Monocytes % 6.4, Eosinophils % 0.3, Basophils % 0.2, Absolute Granulocytes 7.6 H, Absolute Lymphocytes 1.7, Absolute Monocytes 0.6, Absolute Eosinophils 0, Absolute Basophils 0 Assessment/Plan Assessment: 51 YO F obese, smoker (<5 cigarettes/d) with PMH of asthma/COPD, HANNAH on 2L home O2 at night time or exertion, CPAP at night time, spinal stenosis, rheumatoid arthritis, osteoarthritis, fibromyalgia, anxiety and depression presented to ED with chief complaint of confusion, cough with sputum and right-sided chest pain for last 1 week. We are following the patient for following problems: Community-acquired pneumonia: -Outpatient treatment failure. -Patient is on room air and maintaining saturation 91%. -TRC nebulization if needed -IV ceftriaxone and azithromycin. Day 3 - added one dose of vanc results considering initial culture of staph -Follow blood cultures, final -Follow-up sputum cultures, final -Urine strep and Legionella antigen negative -Incentive spirometer -Chest physiotherapy History of obstructive sleep apnea/COPD: -Continue CPAP at nighttime -Continue spiriva and symbicort History of rheumatoid arthritis: -Patient is not taking any methotrexate and folic acid. She was put on 5 mg prednisone that has decreased to 2.5 mg every day. But patient discontinue to take it by herself. -We will give patient stress dose predinsone 40mg for 5 days and comtinue later on her home dose. History of spinal stenosis: -Continue pregabalin History of opiate dependency: -Continue methadone 80mg/day -Dose was confirmed from [facility]. H/O anxiety and depression: -Continue home medications. DVT prophylaxis: Mechanical and subcutaneous heparin CODE STATUS: Full code Problem List: 1. CAP (community acquired pneumonia) Pain Ratin Pain Location: None Pain Goal: Pain 4 or less Pain Plan: NA Tomorrow's Labs & Rationales: DIOMEDES Encarnacion MD,Dgkelvinsophy 08/10/17 1130: Attending MD Review Statement Attending Statement Attending MD Statement: examined this patient, discuss w/resident/PA/DIRECTOR OF REHABILITATIVE SERVICES, agreed w/resident/PA/DIRECTOR OF REHABILITATIVE SERVICES, reviewed EMR data (avail), discussed with nursing, amended to note Attending Assessment/Plan: Patient seen and examined. Resting comfortably. No issues overnight reported by nursing staff. This morning patient reports she feels better and is very eager to be discharged home. I did recommend continue hospitalization for an additional dose of intravenous antibiotic therapy. She however would like to go home today. On examination she has adequate entry bilaterally with no added sounds. She is not in respiratory distress. She is not requiring oxygen supplementation. She is afebrile and has no leukocytosis on her labs. Sputum cultures however are currently growing staph aureus. Sensitivities currently not available. Results returned just after 9 AM this morning. I did discuss with the patient the need to continue hospitalization to determine her sensitivity on appropriate antibiotic regimen. She did agree to this. She verbalized understanding of the need to determine appropriate antibiotics for treating her. Would recommend administering a dose of vancomycin 1 g IV x1 pending results of sensitivity.
[2017-08-10 14:50] VITALS: BP 105/66
[2017-08-10 21:37] VITALS: BP 118/70
[2017-08-11 06:54] VITALS: BP 112/68
--- NOTE | 2017-08-11 07:37 | PN- Housestaff ---
[facility]: Subjective Follow-up For: CAP Subjective: No overnight events. Remained afibrile. Denied fever, chills, chestt pain, palpitation, abdominal pain and dysuria. Her cough has improved and sputum is yellow to whitish in color. pending sensitivities as she is growing staph areus. Review of Systems Constitutional: Denies: chills, fever. EENTM: Reports: no symptoms. Cardiovascular: Denies: chest pain, palpitations. Respiratory: Reports: cough, sputum production. Denies: short of breath. Gastrointestinal: Denies: abdominal pain, constipation, diarrhea, nausea, vomiting. Genitourinary: Reports: no symptoms. Neurological/Psychological: Reports: no symptoms. Objective Last 24 Hrs of Vital Signs/I&O Vital Signs Date Time Temp Pulse Resp B/P B/P Pulse O2 O2 Flow FiO2 Mean Ox Delivery Rate 08/11 0654 98.2 74 18 112/68 93 08/11 0000 Room Air 08/10 2137 98.0 77 18 118/70 94 08/10 1450 98.4 76 16 105/66 96 Room Air Intake & Output 08/11 1600 08/11 0800 08/11 0000 Intake Total 920 1080 Output Total Balance 920 1080 Intake, IV 800 600 Intake, Oral 120 480 Number 0 Bowel Movements Physical Exam General Appearance: Alert, Oriented X3, Cooperative Skin: No Rashes Skin Temp/Moisture Exam: Warm/Dry Sepsis Skin Exam (color): Normal for Ethnicity HEENT: Atraumatic, PERRLA, EOMI Neck: Supple Cardiovascular: Normal S1, Normal S2 Lungs: Clear to Auscultation Abdomen: Soft, No Tenderness Neurological: Normal Speech, Strength at 5/5 X4 Ext, Normal Tone Extremities: No Edema Assessment/Plan Assessment: 51 YO F obese, smoker (<5 cigarettes/d) with PMH of asthma/COPD, HANNAH on 2L home O2 at night time or exertion, CPAP at night time, spinal stenosis, rheumatoid arthritis, osteoarthritis, fibromyalgia, anxiety and depression presented to ED with chief complaint of confusion, cough with sputum and right-sided chest pain for last 1 week. We are following the patient for following problems: Community-acquired pneumonia: -Outpatient treatment failure. -Patient is on room air and maintaining saturation 91%. -TRC nebulization if needed -IV ceftriaxone and azithromycin. Day 4. Patient is going to be discharged on doxycycline for 1 more week. Repeat chest x-ray after 2 weeks as outpatient. -Follow-up with sensitivities as outpatient. -Patient is growing staph areus in sputum so one dose of vanco was given yesterday pending senstivities. -Follow blood cultures, final -Sputum culture is growing staph aureus. Sensitivities are pending -Urine strep and Legionella antigen negative -Incentive spirometer -Chest physiotherapy History of obstructive sleep apnea/COPD: -Continue CPAP at nighttime -Continue spiriva and symbicort History of rheumatoid arthritis: -Patient is not taking any methotrexate and folic acid. She was put on 5 mg prednisone that has decreased to 2.5 mg every day. But patient discontinue to take it by herself. -We will give patient stress dose predinsone 40mg for 5 days and comtinue later on her home dose. History of spinal stenosis: -Continue pregabalin History of opiate dependency: -Continue methadone 80mg/day H/O anxiety and depression: -Continue home medications. DVT prophylaxis: Mechanical and subcutaneous heparin CODE STATUS: Full code Problem List: 1. CAP (community acquired pneumonia) Pain Ratin Pain Location: NONE Pain Goal: Remain pain free Pain Plan: PAIN PATHWAY Tomorrow's Labs & Rationales: CBC Shashank MALONE,Modesta 08/11/17 1222: Attending MD Review Statement Attending Statement Attending MD Statement: examined this patient, discuss w/resident/PA/BOAT RIDE OPERATOR, agreed w/resident/PA/BOAT RIDE OPERATOR, reviewed EMR data (avail), discussed with nursing, discussed with case mgmt, amended to note Attending Assessment/Plan: Patient seen and examined. Resting comfortably and not in any acute distress. No issues overnight. She reports feeling well and is eager to go home today. Denies any shortness of breath. Denies any chest pain. She admits to cough but reports that it is mildly productive of clear phlegm. He no longer wants to remain in the hospital. On examination she has adequate entry bilaterally with no added sounds. She is not requiring oxygen supplementation. Sputum cultures are growing staph aureus however sensitivities have not yet returned. We will discharge patient home on doxycycline to complete 10 days of antibiotic therapy. Recommend that she follow-up with her primary care provider next week for repeat chest x-ray. She verbalized understanding and is medically stable to be discharged today.
[2017-08-11 08:22] LABS: ABSOLUTE BASOPHIL COUNT 0 /CUMM (0.0-0.2); ABSOLUTE EOSINOPHIL COUNT 0 /CUMM (0.0-0.7); ABSOLUTE GRANULOCYTE CT 6.5 /CUMM (1.4-6.5); ABSOLUTE LYMPH COUNT 2.4 /CUMM (1.2-3.4); ABSOLUTE MONOCYTE COUNT 0.6 /CUMM (0.10-0.60); BASOPHIL % 0.2 % (0.0-2.0); EOSINOPHIL % 0.3 % (0-5); HEMATOCRIT 25.3 % (37-47); MEAN CORPUSCULAR HGB 25.5 PG (27.0-31.0); MEAN CORPUSCULAR HGB CONC 33.5 G/DL (33.0-37.0); MEAN PLATELET VOLUME 8.2 FL (7.4-10.4); PLATELET COUNT 472 /CUMM (130-400); RBC DISTRIBUTION WIDTH 17.1 % (11.5-14.5); RED BLOOD CELL CT 3.32 /CUMM (4.20-5.40); WHITE BLOOD CELL COUNT 9.6 /CUMM (4.8-10.8)
--- NOTE | 2017-08-11 10:24 | Patient Discharge Instructions ---
Discharge Instructions General Discharge Information You were seen/treated for: CAP Watch for these problems: Shortness of breath, fever, chills, chest pain, palpitation, altered mental ststus and abdominal pain. If you experince any of these symptoms come to ED or call to pcp. Special Instructions: Follow up with pcp in one week. Please repeat the Chest x-ray in 2 weeks for pneumonia. Please complete one week of antibiotic course. Diet Recommended Diet: Regular Activity Full Activity/No Limits: Yes Acute Coronary Syndrome Inclusion Criteria At DC or during hospital stay patient has or had the following: ACS DIAGNOSIS No Discharge Core Measures Meds if any: Prescribed or Continued at Discharge Meds if any: NOT Prescribed or Continued at Discharge Congestive Heart Failure Inclusion Criteria At DC or during hospital stay patient has or had the following: CHF DIAGNOSIS No Discharge Core Measures Meds if any: Prescribed or Continued at Discharge Meds if any: NOT Prescribed or Continued at Discharge Cerebrovascular accident Inclusion Criteria At DC or during hospital stay patient has or had the following: CVA/TIA Diagnosis No Discharge Core Measures Meds if any: Prescribed or Continued at Discharge Meds if any: NOT Prescribed or Continued at Discharge Venous thromboembolism Inclusion Criteria VTE Diagnosis No VTE Type NONE VTE Confirmed by (Test) NONE Discharge Core Measures - Per Current guidelines, there needs to be overlap - treatment for the first 5 days of Warfarin therapy. - If discharged on Warfarin prior to 5 days of - overlap therapy, the patient will need to be - assessed for post discharge needs including - *Post discharge parental anticoagulation - *Warfarin and/or parental anticoagulation education - *Follow up date to check INR post discharge At least 5 days overlap therapy as Inpatient No Meds if any: Prescribed or Continued at Discharge Note: Overlap Therapy is Warfarin and Anticoagulant Meds if any: NOT Prescribed or Continued at Discharge
[2017-08-11] MEDS ORDERED: DOXYCYCLINE HY100 M2 PO (12:01)
[2017-08-11] MEDS ORDERED: PREDNISONE2.5 M1 PO (12:06)
--- NOTE | 2017-08-11 12:08 | Discharge Summary ---
Visit Information Visit Dates Admission Date: 08/08/17 Discharge Date: 08/11/17 Hospital Course Course Attending Physician: Modesta Encarnacion MD Primary Care Physician: Denise Marie DO [facility] Course: 51 YO F obese, smoker (<5 cigarettes/d) with PMH of asthma/COPD, HANNAH on 2L home O2 at night time or exertion, CPAP at night time, spinal stenosis, rheumatoid arthritis, osteoarthritis, fibromyalgia, anxiety and depression presented to ED with chief complaint of confusion, cough with sputum and right-sided chest pain for last 1 week. ED course: Vitals: Temperature 98.7, pulse 83, respiratory rate 18, blood pressure 93/64, oxygen saturation 98% on room air Labs: WBC count 8.0, hemoglobin 9.9, hematocrit 29.2, platelet count 473, sodium 138, potassium 4.4, BUN 14, creatinine 0.7, anion gap 10, lactic acid 0.9, BUN/ creatinine ratio 20.0, AST 26, ALT 34, ammonia less than 9, direct bilirubin 0.5 , lipase 15, INR 1.33 Patient received 1 dose of azithromycin and ceftriaxone in ED Blood cultures and urine cultures were obtained in ED. Community-acquired pneumonia: Patient was admitted with CAP with outpatient treatment failure. She was given supplemental oxygen to maintain saturation above 92%. Blood cultures and sputum cultures were obtained. TRC nebulization was started. Patient was given IV ceftriaxone and azithromycin. Her sputum culture came back positive with staph aureus, patient was given 1 dose of vancomycin pending sensitivities to cover MRSA. Patient remained afebrile and WBC count remained within normal limits during hospital stay. The patient had fever on the day of admission. We spoke to the lab and they told us that sensitivities will take 1-2 days. As patient wanted to leave so she was given doxycycline for 1 week to complete the antibiotic course for 10 days for pneumonia. Patient was advised to repeat chest x-ray after 2 weeks as outpatient to reassess the patient. Patient was instructed to follow her primary care physician. History of obstructive sleep apnea/COPD: Continued spread leave and Symbicort. History of rheumatoid arthritis: Patient was not taking any methotrexate and folic acid. She was put on 5 mg prednisone that has decreased to 2.5 mg every day. But patient discontinue to take it by herself. Patient received prednisone 40 mg a stress dose during hospital stay. Later on patient was discharged to 2.5 mg prednisone every day. History of spinal stenosis: Continued pregabalin History of opiate dependency: Continued methadone 80mg/day H/O anxiety and depression: Continued home medications. DVT prophylaxis: Mechanical and subcutaneous heparin CODE STATUS: Full code Allergies: Coded Allergies: NO KNOWN ALLERGIES (01/13/13) Pertinent Lab Results: Chest x-ray on 08/08/17: IMPRESSION: Significant consolidation right upper lobe compatible with pneumonia. Follow-up chest x-ray after treatment recommended. Head CT scan on 06/10/2017; IMPRESSION: 1. There are no acute bleeds or territorial infarcts. No masses are demonstrated. 2. There are arthropathic changes of the bilateral temporomandibular joints. WBC count 9.6, hemoglobin 8.5, hematocrit 25.3, platelet count 472, sodium 141, potassium 4.3, anion gap 13, BUN 11, creatinine 0.5, glucose 95 Disposition Summary Disposition Principal Diagnosis: Community-acquired pneumonia Additional Diagnosis: History of obstructive sleep apnea/COPD History of rheumatoid arthritis History of spinal stenosis History of anxiety and depression History of opiate dependency Discharge Disposition: home or self care Discharge Instructions General Discharge Information Code Status: Full Code Patient's Diet: Regular diet Patient's Activity: Self-limited Follow-Up Instructions/Appts: Follow up with pcp in one week. Please repeat the Chest x-ray in 2 weeks for pneumonia. Please complete one week of antibiotic course. Medications at Discharge Discharge Medications: Stop taking the following medications: Azithromycin (Azithromycin) 250 MG TABLET ORAL As Directed Qty = 6 Continue taking these medications: Diclofenac Sodium (Diclofenac Sodium) 75 MG TABLET. 1 Tablet ORAL TWICE DAILY Qty = 60 Comments: NOT GIVEN IN HOSPITAL Pregabalin (Lyrica) 150 MG CAPSULE 1 Capsule ORAL THREE TIMES DAILY Qty = 90 Comments: Last Taken: 08/11/17 Time: 12:00 PM Budesonide/Formoterol Fumarate (Symbicort 160-4.5 Mcg Inhaler) 160 MCG-4.5 MCG/ ACTUATION HFA.AER.AD 2 Puff Inhale through mouth TWICE DAILY Qty = 1 Instructions: . Comments: Last Taken: 08/11/17 Time: 9:00 AM Albuterol Sulfate (Proair Hfa) 90 MCG HFA.AER.AD 2 Puff Inhale through mouth EVERY 4-6 HOURS NEEDED as needed for COPD Qty = 1 Instructions: . Comments: NOT GIVEN IN HOSPITAL Tiotropium [place] (Spiriva) 18 MCG CAP.W.DEV 1 Puff Inhale through mouth DAILY Qty = 30 Instructions: . Comments: Last Taken: 08/11/17 Time: 9:00 AM Methadone HCl (Methadone HCl) 10 MG/ML ORAL.CONC 80 Milligram ORAL DAILY Comments: Last Taken: 08/11/17 Time: 9:00 AM Fluticasone Propionate (Fluticasone Propionate) 50 MCG/ACTUATION SPRAY.SUSP 1 [place] Both sides of nose DAILY Qty = 16 Comments: NOT GIVEN IN HOSPITAL Prednisone (Prednisone) 2.5 MG TABLET 1 Tablet ORAL DAILY Qty = 30 Comments: Last Taken: 08/11/17 Time: 9:00 AM Start taking the following new medications: Doxycycline Hyclate (Doxycycline Hyclate) 100 MG CAPSULE 1 Capsule ORAL TWICE DAILY Qty = 14 No Refills Comments: NOT GIVEN IN HOSPITAL Copies To: Denise Marie DO Attending Review Statement Documenting Attending: Modesta Encarnacion MD Other Findings: Discharged in stable condition.
== END 2017-08-11 13:01 | DRG 137 ==
LOC: ERH 10:11 → 2NB 14:53 → ERHI 14:53 → ENRESERV 16:37 → ENTRNSPT 17:11 → EDTRNSPTSTS 17:15 → 2NB 17:23 → CMPTRNSPT 17:34 → 2NB 08-11 07:52 → ENPENDDIS 08-11 12:26 → 2NB 08-11 13:01
PROVIDERS: Physician Assistant; Radiology Vascular & Interventional Radiology; Student in an Organized Health Care Education/Training Program
DX: J15.211 Pneumonia due to Methicillin susceptible Staphylococcus aureus (principal); J91.8 Pleural effusion in other conditions classified elsewhere; R44.1 Visual hallucinations; F11.20 Opioid dependence, uncomplicated; F17.210 Nicotine dependence, cigarettes, uncomplicated; J44.0 Chronic obstructive pulmonary disease with (acute) lower respiratory infection; E66.9 Obesity, unspecified; Z68.26 Body mass index [BMI] 26.0-26.9, adult; G47.33 Obstructive sleep apnea (adult) (pediatric); M48.00 Spinal stenosis, site unspecified; M06.9 Rheumatoid arthritis, unspecified; M19.90 Unspecified osteoarthritis, unspecified site; M79.7 Fibromyalgia; F41.9 Anxiety disorder, unspecified; F32.9 Major depressive disorder, single episode, unspecified
CPT/HCPCS: 2NBSP; 87184; 36592; 71046; 81001; 82436; 87040; 87070; 87086; 87147; 87449; 87450; 93005; 93010; 96374; 96375; J0131; J0456; J0696; J1650; J3370; J3490; J7040

== ENCOUNTER 2017-10-12 10:04 | Inpatient (IN) | payer OTHER ==
[~2017-10-12] VITALS: Ht 147.3 cm; Wt 66.3 kg
[~2017-10-12 10:04] MED LIST changes: +AZITHROMYCIN250 M1 PO; +DOXYCYCLINE HY100 M2 PO; +FLUTICASONE PRO16 GM NASB; +METHADONE10 MG/1 M2 PO
--- NOTE | 2017-10-12 10:48 | ED DYSPNEA/ASTHMA COMPLAINT ---
History of Present Illness General Chief Complaint: General Adult Stated Complaint: COUGH FEVER XS FOR MONTHS Source: patient, family (sister) Exam Limitations: no limitations Vital Signs & Intake/Output Vital Signs & Intake/Output Vital Signs Date Time Temp Pulse Resp B/P B/P Pulse O2 O2 Flow FiO2 Mean Ox Delivery Rate 10/12 1638 68 22 101/61 99 Nasal 2.0L Cannula 10/12 1447 98.8 76 22 96/60 96 Room Air 10/12 1341 98.8 78 20 102/59 97 Nasal 2.0L Cannula 10/12 1257 84 20 90/58 96 Nasal 2.0L Cannula 10/12 1134 94 Nasal 2.0L Cannula 10/12 1123 99.3 24 96 Nasal 2.0L Cannula 10/12 1105 98.4 24 96 Nasal 2.0L Cannula 10/12 1008 88 24 103/68 92 Room Air Room Air Allergies Coded Allergies: NO KNOWN ALLERGIES (01/13/13) Reconcile Medications Albuterol Sulfate (Proair Hfa) 90 MCG HFA.AER.AD 2 PUF INH Q4-6 PRN PRN COPD . Benzonatate (Tessalon Perle) 100 MG CAPSULE 100 MG PO COUGH (Reported) Budesonide/Formoterol Fumarate (Symbicort 160-4.5 Mcg Inhaler) 160 MCG-4.5 MCG/ ACTUATION HFA.AER.AD 2 PUF INH BID COPD . Diclofenac Sodium 75 MG TABLET.DR 1 TAB PO BID PAIN/INFLAMMATION (Reported) Fluticasone Propionate 50 MCG/ACTUATION SPRAY.SUSP 1 SPRAY NASB DAILY NASAL CONGESTION (Reported) Methadone HCl 10 MG/ML ORAL.CONC 80 MG PO DAILY MENTAL HEALTH/CHRONIC PAIN ( Reported) Prednisone 2.5 MG TABLET 1 TAB PO DAILY RHEUMATOID ARTHRITIS (Reported) Pregabalin (Lyrica) 150 MG CAPSULE 1 CAP PO TID NERVE PAIN (Reported) Tiotropium Hernandez (Spiriva) 18 MCG CAP.W.DEV 1 PUF INH DAILY COPD . Triage Note: TRIAGE: 52 Y/O FEMALE PRESENTS C/O COUGH AND FEVER TIMES MONTHS. SPO2 IN TRIAGE 92%, RESP RATE 24, PALE. ON METHADONE MAINTENANCE THROUGH [facility] [place] IN [place] ON [address]: [phone]. DAILY DOSE 80MG. Triage Nurses Notes Reviewed? yes Onset: Last week Duration: intermittent Timing: recent history (july 2017) Severity: moderate HPI: 52-year-old female presented to the emergency department with history significant of asthma/COPD, spinal stenosis, arthritis, anxiety/depression, and recent history of pneumonia in July 2017 for which she was admitted to [facility] for several days. Patient reports last couple weeks she has continued having a cough, and as of the last week she has had bloody sputum. She was seen this last week by her PMD Denise Marie DO and was given benzonatate pills for cough. She denies any fevers, nasal congestion, rhinorrhea, shortness of breath, abdominal pain, vomiting/diarrhea. She is currently on methadone maintenance through the [facility] in [place], taking 80 mg daily. She does report pain related to fibromyalgia, and also per patient's sister needs to have bilateral knee replacement which is also causing her pain. She is a smoker typically smoking 4 cigarettes daily however for the last couple days has been unable to smoke. Past History Travel History Traveled to [facility] past 21 day No Medical History Any Pertinent Medical History? see below for history Neurological: NONE EENT: allergies Cardiovascular: NONE Respiratory: COPD Gastrointestinal: NONE Hepatic: NONE Renal: NONE Musculoskeletal: SPINAL STENOSIS ARTHRITIS PAIN MANAGEMENT Psychiatric: anxiety, depression Endocrine: NONE Blood Disorders: NONE Cancer(s): NONE WIDE LOAD ESCORT/Reproductive: NONE History of MRSA: No History of VRE: No History of CDIFF: No Surgical History Surgical History: none Psychosocial History Where do you live Home Who do you live with Sister Services at Home None What is your primary language Zimbabwean Tobacco Use: Current Daily Use Daily Tobacco Use Amount/Type: =< 4 Cigarettes daily ETOH Use: denies use Illicit Drug Use: METHADONE MAINTANENCE Family History Family History, If Any: No Known Family History. Hx Contributory? No Review of Systems Review of Systems Constitutional: Reports: no symptoms. EENTM: Reports: no symptoms. Respiratory: Reports: see HPI. Cardiovascular: Reports: no symptoms. GI: Reports: no symptoms. Genitourinary: Reports: no symptoms. Musculoskeletal: Reports: see HPI. Skin: Reports: no symptoms. Neurological/Psychological: Reports: no symptoms. Hematologic/Endocrine: Reports: no symptoms. Immunologic/Allergic: Reports: no symptoms. All Other Systems: Reviewed and Negative Physical Exam Physical Exam General Appearance: well developed/nourished, no apparent distress, alert, awake , mild distress Head: atraumatic, normal appearance Eyes: Bilateral: normal appearance, PERRL, EOMI. Ears, Nose, Throat: hearing grossly normal Neck: normal inspection, full range of motion Respiratory: chest non-tender, decreased breath sounds (particularly right lower lobe), rhonchi, respiratory distress (mild) Cardiovascular: regular rate/rhythm, normal peripheral pulses Peripheral Pulses: 3+ dorsalis pedis (R), 3+ dorsalis pedis (L) Gastrointestinal: soft, non-tender Extremities: normal inspection, normal range of motion Neurologic/Psych: no motor/sensory deficits, awake, alert, oriented x 3, normal mood/affect, tools and parts attendant II-XII nml as tested Skin: intact, normal color, warm/dry Core Measures ACS in differential dx? No CVA/TIA Diagnosis No Sepsis Present: No Sepsis Focused Exam Completed? No Progress Differential Diagnosis: asthma, bronchitis, COPD, pulmonary embolism, pneumonia Plan of Care: Orders Procedure Date/time Status Regular Diet 10/13 B Active HEPATIC FUNCTION PANEL 10/13 06 Active CBC WITHOUT DIFFERENTIAL 10/13 06 Active BASIC ELECTROLYTES PLUS BUN&CR 10/13 06 Active Regular Diet 10/12 D Complete STREP PNEUMO URINARY ANTIGEN 10/12 1736 Active LEGIONELLA URINARY ANTIGEN 10/12 1736 Active AFB 3 WITH SMEAR 10/12 1736 Active AFB 2 WITH SMEAR 10/12 1736 Active AFB 1 WITH SMEAR 10/12 1736 Active URINE DRUGS OF ABUSE 10/12 1731 Active Pathway - chart 10/12 1729 Active House Staff 10/12 1729 Active Patient Data 10/12 1729 Active Patient Data 10/12 1656 Active LOWER RESPIRATORY CULTURE 10/12 1615 Active OXYGEN SETUP (GEN) 10/12 1455 Active Saline Lock 10/12 1455 Active Admit to inpatient 10/12 1455 Active Vital Signs 10/12 1455 Active Activity/Ambulation 10/12 1455 Active Code Status 10/12 1455 Active BLOOD CULTURE 10/12 1251 Active EKG 10/12 1048 Active OXYGEN SETUP (GEN) 10/12 1044 Active RT ED ORDERS 10/12 1044 Complete URINALYSIS 10/12 1044 Active TROPONIN LEVEL 10/12 1044 Complete LACTIC ACID 10/12 1044 Complete COMPREHENSIVE METABOLIC PANEL 10/12 1044 Complete CBC WITHOUT DIFFERENTIAL 10/12 1044 Complete Intake & Output 10/12 1006 Active VTE Mechanical Prophylaxis 10/12 UNK Active Isolation 10/12 UNK Active Current Medications Sig/Maribeth Start time Last Medication Dose Stop Time Status Admin Azithromycin 500 MG DAILY@1400 10/13 1400 AC (Zithromax) Sodium Chloride 250 ML (Normal Saline 0.9%) Ceftriaxone Sodium 1,000 MG DAILY@1330 10/13 1330 AC (Rocephin) Enoxaparin Sodium 40 MG DAILY 10/13 0900 AC (Lovenox) Fluticasone 1 SPRAY DAILY 10/13 09 AC Propionate (Flonase) Methadone HCl 80 MG DAILY 10/13 09 UNVr (Dolophine) Prednisone 2.5 MG DAILY 10/13 899 UNVr (Prednisone) Tiotropium Hernandez 1 PUF DAILY 10/13 899 UNVr (Spiriva) Vancomycin HCl 1,000 MG DAILY 10/13 899 UNir Sodium Chloride 250 ML (Normal Saline 0.9%) Budesonide/ 2 PUF BID 10/12 2100 AC Formoterol Fumarate (Symbicort) Pregabalin 150 MG TID 10/12 2100 UNVr (Lyrica) Albuterol Sulfate 2 PUF Q4-6 PRN PRN 10/12 1745 AC (Ventolin) Acetaminophen 650 MG Q6PRN PRN 10/12 1730 AC (Tylenol) Guaifenesin 10 ML Q4P PRN 10/12 1730 AC (Robitussin) Lactated Ringer's 1,000 ML Q13H 10/12 1730 AC (Lactated Ringers) Laboratory Tests 10/12/17 1344: Lactic Acid Cancelled 10/12/17 1100: Anion Gap 12, Estimated GFR > 60, BUN/Creatinine Ratio 20.0, Glucose 112 H, Lactic Acid 0.7, Calcium 8.3 L, Total Bilirubin 0.7, AST 28, ALT 35, Alkaline Phosphatase 148 H, Troponin I < 0.01, Total Protein 6.8, Albumin 2.9 L, Globulin 3.9, Albumin/Globulin Ratio 0.7 L, CBC w Diff MAN DIFF ORDERED, RBC 3.84 L, MCV 73.7 L, MCH 23.7 L, MCHC 32.1 L, RDW 18.6 H, MPV 7.9, Gran % 87.8 H, Lymphocytes % 6.8 L, Monocytes % 5.1, Eosinophils % 0, Basophils % 0.3 , Absolute Granulocytes 16.6 H, Absolute Lymphocytes 1.3, Absolute Monocytes 1.0 H, Absolute Eosinophils 0, Absolute Basophils 0.1, Polychromasia 1+, Poikilocytosis 1+, Anisocytosis 2+ Microbiology 10/13 1735 URINE ROUT: Legionella Antigen - ORD 10/12 173 URINE ROUT: Streptococcus pneumoniae Antigen (M - ORD 10/12 173 LOWER RESP: AFB Culture with PCR Identification - ORD 10/12 173 LOWER RESP: AFB Culture with PCR Identification - ORD 10/12 173 LOWER RESP: AFB Culture with PCR Identification - ORD 10/12 173 LOWER RESP: AFB Smear Concentration - ORD 10/12 161 LOWER RESP: Respiratory Culture - ORD 10/12 161 LOWER RESP: Gram Stain - ORD 10/12 1337 BLOOD: Blood Culture - RECD 10/12 1307 BLOOD: Blood Culture - RECD 52 year old female with recent history of right upper lobe pneumonia 2 months ago, with history of COPD and cigarette smoking, presented to the ED with hemoptysis x 1 wk intermittent and cough x several weeks. -Pulse ox 92% - Duoneb and 2L nasal cannula initiated -Temperature increasing during visit from 98.4 to 99.3 -Hgb 9.1 -WBC 18.9, patient started on ceftriaxone, azithromycin, and solumedrol for empiric tx of CAP -Pressures dropping into systolic of 90s, fluids administered -Patient's sister report she seems more fatigued/slightly more disoriented since she has been here -CT pos for right lobe consolidation with cavitation consistent with pneumonia -Spoke with Dr. Norwood will request admission for patient -Spoke with Dr. Birch who accepts patient for admission, requesting vanco added d/t cavitary pneumonia to cover for MRSA. Diagnostic Imaging: Viewed by Me: CT Scan. Discussed w/RAD: CT Scan. Radiology Impression: PATIENT: MERI GONZALEZ PRESENT AGE: 52 PATIENT ACCOUNT NO: [id number] : 63 LOCATION: [facility] ORDERING PHYSICIAN: Jeanette VAUGHN SERVICE DATE: 10/12/17 EXAM TYPE: CAT - CTA CHEST-PULMONARY EMBOLISM EXAMINATION: CT ANGIOGRAM OF THE CHEST WITH AND WITHOUT CONTRAST (CT PULMONARY ANGIOGRAM FOR PE) CLINICAL INFORMATION: Pulmonary embolism. Cough, hemoptysis. COMPARISON: Chest radiograph done on 08/22/2017 and 08/08/2017. TECHNIQUE: Prior to contrast administration, noncontrast localization images were obtained. Subsequently, multidetector volumetric imaging was performed from the thoracic inlet to below the diaphragms following the administration of 95 mL Optiray 320 intravenous contrast. No contrast reaction reported. Sagittal, coronal, and MIP oblique sagittal reformatted images were obtained on the CT workstation, uploaded to PACS, and reviewed. Total exam dose-length product 334.34 mGy-cm. FINDINGS: QUALITY OF STUDY/ CONTRAST BOLUS: Satisfactory PULMONARY ARTERIES: No central or proximal segmental pulmonary emboli. Distal segmental or subsegmental pulmonary embolism is not excluded. THORACIC AORTA: No aneurysm or dissection. LUNG: Dense airspace consolidation with superimposed multiple cystic areas and possible confluent cavitation with small air-fluid level is noted at right upper lobe of the lung, shows significant interval progression since prior chest radiographs, consistent with pneumonia. The right upper lobar bronchus appear patent. Subtle groundglass opacities are noted at posterior superior, medial aspect of the superior segment of right lower lobe of the lung. The remainder of the right-sided and the entire left lungs are clear. Incidental note is made of emphysematous disease involving bilateral aerated lung abraham mostly involving left upper lobe and both lower lobes. The tracheobronchial tree is patent. PLEURA: No pleural effusion or pneumothorax. MEDIASTINUM: Normal heart size. No pericardial effusion. Right infrahilar soft tissue prominence is noted likely represent infrahilar lymphadenopathy. 0.8 cm subcarinal lymph node is noted, by size criteria within normal limits. No evidence of septal bowing or right heart strain. CHEST WALL/ AXILLA: No axillary or internal mammary lymphadenopathy. OSSEOUS STRUCTURES: No acute or suspicious osseous abnormality. UPPER ABDOMEN: Mild thickening of both adrenal gland is noted without any discrete mass. Subtle heterogeneous enhancement is noted within the spleen likely represent flow phenomenon. No reflux of contrast into the hepatic veins to suggest elevated right heart pressures. IMPRESSION: 1. There is no evidence of any central or proximal segmental pulmonary embolism present. 2. Right upper lobar dense airspace consolidation with superimposed cystic changes and cavitation with suggestion of air-fluid level with patent right upper lobar bronchus. 3. Right infrahilar enlarged likely lymph node and small subcarinal lymph node. 4. Mild thickening of both adrenal glands. VTE: negative. DICTATED BY: Lemuel Mcnulty MD DATE/TIME DICTATED:10/12/171245 PRINTING SIGN MACHINE OPERATOR:SHANELLE DATE/TIME TRANSCRIBED:1245 CONFIDENTIAL, DO NOT COPY WITHOUT APPROPRIATE AUTHORIZATION. < Electronically signed in Other Vendor System> SIGNED BY: Lemuel Mcnulty MD 10/12/17 1321 Initial ED EKG: normal axis Departure Departure Disposition: STILL A PATIENT Condition: Stable Clinical Impression Primary Impression: Pneumonia Qualifiers: Pneumonia type: due to unspecified organism Laterality: right Lung location: unspecified part of lung Qualified Code: J18.9 - Pneumonia, unspecified organism Referrals: Denise Marie DO (PCP/Family) Departure Forms: Customer Survey General Discharge Information Admission Note Spoke With: Charla Birch MD Documentation of Exam: Documentation of any treatments & extenuating circumstances including Concerns Regarding Discharge (functional status, medication knowledge or non-compliance, living conditions, etc.) that warrant an admission rather than observation: [ hypotensive, febrile, right lobe consolidation with cavitation c/w community acquired pneumona, history of admission 2 months ago for pneumonia; continue IV fluids and IV abx, pulmonology/ID consult] Critical Care Note Critical Care Note Critical Care Time: non-applicable
[2017-10-12 11:14] LABS: ABSOLUTE BASOPHIL COUNT 0.1 /CUMM (0.0-0.2); ABSOLUTE EOSINOPHIL COUNT 0 /CUMM (0.0-0.7); ABSOLUTE GRANULOCYTE CT 16.6 /CUMM (1.4-6.5); ABSOLUTE LYMPH COUNT 1.3 /CUMM (1.2-3.4); BASOPHIL % 0.3 % (0.0-2.0); EOSINOPHIL % 0 % (0-5); GRANULOCYTE % 87.8 % (42.2-75.2); HEMATOCRIT 28.3 % (37-47); MEAN CORPUSCULAR HGB 23.7 PG (27.0-31.0); MEAN CORPUSCULAR HGB CONC 32.1 G/DL (33.0-37.0); MEAN CORPUSCULAR VOLUME 73.7 FL (81.0-99.0); MEAN PLATELET VOLUME 7.9 FL (7.4-10.4); PLATELET COUNT 507 /CUMM (130-400); RBC DISTRIBUTION WIDTH 18.6 % (11.5-14.5); RED BLOOD CELL CT 3.84 /CUMM (4.20-5.40); WHITE BLOOD CELL COUNT 18.9 /CUMM (4.8-10.8)
[2017-10-12] MEDS ORDERED: TESSALON PERLE100 M1 PO (13:05)
--- NOTE | 2017-10-12 13:21 | CT SCAN REPORT ---
EXAMINATION: CT ANGIOGRAM OF THE CHEST WITH AND WITHOUT CONTRAST (CT PULMONARY ANGIOGRAM FOR PE) CLINICAL INFORMATION: Pulmonary embolism. Cough, hemoptysis. COMPARISON: Chest radiograph done on 08/22/2017 and 08/08/2017. TECHNIQUE: Prior to contrast administration, noncontrast localization images were obtained. Subsequently, multidetector volumetric imaging was performed from the thoracic inlet to below the diaphragms following the administration of 95 mL Optiray 320 intravenous contrast. No contrast reaction reported. Sagittal, coronal, and MIP oblique sagittal reformatted images were obtained on the CT workstation, uploaded to PACS, and reviewed. Total exam dose-length product 334.34 mGy-cm. FINDINGS: QUALITY OF STUDY/CONTRAST BOLUS: Satisfactory PULMONARY ARTERIES: No central or proximal segmental pulmonary emboli. Distal segmental or subsegmental pulmonary embolism is not excluded. THORACIC AORTA: No aneurysm or dissection. LUNG: Dense airspace consolidation with superimposed multiple cystic areas and possible confluent cavitation with small air-fluid level is noted at right upper lobe of the lung, shows significant interval progression since prior chest radiographs, consistent with pneumonia. The right upper lobar bronchus appear patent. Subtle groundglass opacities are noted at posterior superior, medial aspect of the superior segment of right lower lobe of the lung. The remainder of the right-sided and the entire left lungs are clear. Incidental note is made of emphysematous disease involving bilateral aerated lung abraham mostly involving left upper lobe and both lower lobes. The tracheobronchial tree is patent. PLEURA: No pleural effusion or pneumothorax. MEDIASTINUM: Normal heart size. No pericardial effusion. Right infrahilar soft tissue prominence is noted likely represent infrahilar lymphadenopathy. 0.8 cm subcarinal lymph node is noted, by size criteria within normal limits. No evidence of septal bowing or right heart strain. CHEST WALL/AXILLA: No axillary or internal mammary lymphadenopathy. OSSEOUS STRUCTURES: No acute or suspicious osseous abnormality. UPPER ABDOMEN: Mild thickening of both adrenal gland is noted without any discrete mass. Subtle heterogeneous enhancement is noted within the spleen likely represent flow phenomenon. No reflux of contrast into the hepatic veins to suggest elevated right heart pressures. IMPRESSION: 1. There is no evidence of any central or proximal segmental pulmonary embolism present. 2. Right upper lobar dense airspace consolidation with superimposed cystic changes and cavitation with suggestion of air-fluid level with patent right upper lobar bronchus. 3. Right infrahilar enlarged likely lymph node and small subcarinal lymph node. 4. Mild thickening of both adrenal glands. VTE: negative.
--- NOTE | 2017-10-12 16:16 | History & Physical ---
MarshallMassiel 10/12/17 1615: General Information and HPI MD Statement: I have seen and personally examined MERI GONZALEZ and documented this H&P. The patient is a 52 year old F who presented with a patient stated chief complaint of [cough with blood tinged sputum and feeling 'sick']. Source of Information: patient Exam Limitations: no limitations History of Present Illness: 52 yo female with PMH significant for recent PNA with admission at [facility] in July 2017, asthma/COPD, spinal stenosis, rheumatoid arthritis, anxiety, depression, opiod dependence on methadone from [facility]. Patient states she was returned to normal health after being discharged in July. She began feeling sick a few weeks ago reporting cough with sputum production. She reports blood tinged sputum. She denies fever, chills, n/v/d, chest pain, SOB, lightheadedness. She states she was brought in by her sister with whom she lives. Patient is a current tobacco smoker (15 pack year hx) and reports occasional recreational drug use including IV heroin. Allergies/Medications Allergies: Coded Allergies: NO KNOWN ALLERGIES (01/13/13) Home Med list Albuterol Sulfate (Proair Hfa) 90 MCG HFA.AER.AD 2 PUF INH Q4-6 PRN PRN COPD . Benzonatate (Tessalon Perle) 100 MG CAPSULE 100 MG PO COUGH (Reported) Budesonide/Formoterol Fumarate (Symbicort 160-4.5 Mcg Inhaler) 160 MCG-4.5 MCG/ ACTUATION HFA.AER.AD 2 PUF INH BID COPD . Diclofenac Sodium 75 MG TABLET.DR 1 TAB PO BID PAIN/INFLAMMATION (Reported) Fluticasone Propionate 50 MCG/ACTUATION SPRAY.SUSP 1 SPRAY NASB DAILY NASAL CONGESTION (Reported) Methadone HCl 10 MG/ML ORAL.CONC 80 MG PO DAILY MENTAL HEALTH/CHRONIC PAIN ( Reported) Prednisone 2.5 MG TABLET 1 TAB PO DAILY RHEUMATOID ARTHRITIS (Reported) Pregabalin (Lyrica) 150 MG CAPSULE 1 CAP PO TID NERVE PAIN (Reported) Tiotropium [place] (Spiriva) 18 MCG CAP.W.DEV 1 PUF INH DAILY COPD . 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 Psychosocial History Where do you live? Home Services at Home: None ETOH Use: denies use Illicit Drug Use: METHADONE MAINTANENCE Living Will? no Functional Ability ADLs Independent: dressing, eating, toileting, bathing. Ambulation: independent, SEE hpi FOR DETAILS IADLs Independent: shopping, housework, finances, food prep, telephone, transportation , medication admin. Review of Systems Review of Systems Constitutional: Reports: see HPI. EENTM: Reports: no symptoms. Cardiovascular: Reports: no symptoms. Respiratory: Reports: no symptoms. GI: Reports: no symptoms. Genitourinary: Reports: no symptoms. Musculoskeletal: Reports: no symptoms. Skin: Reports: no symptoms. Neurological/Psychological: Reports: no symptoms. Hematologic/Endocrine: Reports: no symptoms. Immunologic/Allergic: Reports: no symptoms. All Other Systems: Reviewed and Negative Exam & Diagnostic Data Last 24 Hrs of Vital Signs/I&O Vital Signs Date Time Temp Pulse Resp B/P B/P Pulse O2 O2 Flow FiO2 Mean Ox Delivery Rate 10/12 1758 97.3 72 18 97/58 99 Nasal 2.0L Cannula 10/12 1638 68 22 101/61 99 Nasal 2.0L Cannula 10/12 1447 98.8 76 22 96/60 96 Room Air 10/12 1341 98.8 78 20 102/59 97 Nasal 2.0L Cannula 10/12 1257 84 20 90/58 96 Nasal 2.0L Cannula 10/12 1134 94 Nasal 2.0L Cannula 10/12 1123 99.3 24 96 Nasal 2.0L Cannula 10/12 1105 98.4 24 96 Nasal 2.0L Cannula 10/12 1008 88 24 103/68 92 Room Air Room Air Intake & Output 10/12 1600 10/12 0800 07 0000 Intake Total 2600 Output Total Balance 2600 Intake, IV 2600 Patient 140 lb Weight Weight Reported by Patient Measurement Method Physical Exam General Appearance Alert, Oriented X3, Mild Distress Skin diaphoretic Skin Temp/Moisture Exam: Cool/Diaphoretic Sepsis Skin Exam (color): Normal for Ethnicity HEENT Atraumatic, PERRLA Neck Supple Lymphatic Cervical nl Cardiovascular Regular Rate, Normal S1, Normal S2 Lungs rhoncorous with crackles (right sided) Abdomen Normal Bowel Sounds, Soft Neurological Strength at 5/5 X4 Ext, Normal Tone, Sensation Intact Extremities No Edema, Normal Pulses Vascular Normal Pulses, Pulses Symmetrical Sepsis Peripheral Pulse Location: Posterior Tibialis Sepsis Peripheral Pulse Exam: Normal Sepsis Cap Refill Exam: <2 Sec Assessment/Plan Assessment: Assessment: 52 yo female with PMH significant for recent PNA with admission at [facility] in July 2017, asthma, spinal stenosis, rheumatoid arthritis, anxiety, depression, opiod dependence on methadone from [facility]. Patient is being admitted for right upper lobe pneumonia and ID has been consulted. Pneumonia likely community acquired bacterial vs TB. Admission VS: T 98.8 P76 RR22 BP96/60 O2 96%RA Admission Labs: WBC 18.9 Hbg 9.[address] chest on Admission: RUL dense airspace consolidation with superimposed cystic changes and cavitation with suggestion of air-fluid level with patent right upper lobar bronchus. #Pneumonia -Ceftriaxone and azithromycin and vancomycin -IVF LR 75mL/hr #Asthma/COPD -symbicort -albuterol -Prednisone #Opiod dependence -methadone DVT prophylaxis: Lovenox, ALPS, ambulation As Ranked By This Provider Problem List: 1. CAP (community acquired pneumonia) Core Measures/Misc (12/29) Acute Coronary Syndrome ACS Diagnosis: No Congestive Heart Failure Congestive Heart Failure Diagnosis No Cerebrovascular Accident CVA/TIA Diagnosis: No VTE (View Protocol) VTE Risk Factors Smoker No Mechanical VTE Prophylaxis d/t N/A MechProphylax Ordered No VTE Pharm Prophylaxis d/t NA PharmProphylax ordered Sepsis (View protocol) Sepsis Present: Yes If YES complete Sepsis Event Note If YES complete Sepsis Event Note Eyal MALONE,Charla 10/12/17 1722: Core Measures/Misc (12/29) Sepsis (View protocol) If YES complete Sepsis Event Note If YES complete Sepsis Event Note Attending MD Review Statement Attending Statement Attending MD Statement: examined this patient, discuss w/resident/PA/COOK CHILL TECHNICIAN, agreed w/resident/PA/COOK CHILL TECHNICIAN, reviewed EMR data (avail), reviewed images Attending Assessment/Plan: 52-year-old female past medical history of COPD, rheumatoid arthritis on low- dose prednisone, active tobacco use and admitted IV drug use within the past month. She is here with complaints of cough, fever, poor by mouth intake. She was found to have a leukocytosis with a left shift and a right upper lobe pneumonia with cavitation. Her pressure is on the low side but in review of her previous records when she was here in July she tends to run low blood pressure. She was recently treated for a community-acquired pneumonia on that admission. In all likelihood this is a cavitary necrotizing bacterial pneumonia given the acuity of symptoms, the dramatic change in the chest x-ray and the white count with a left shift. However given the fact that she is on low-dose prednisone and admits to IV heroin, the possibility of TB has to be entertained. We'll put her in an isolation room and get sputum for AFBs. Call a formal ID consult. We 'll continue with the ceftriaxone and azithromycin and vancomycin for the possibility of a staph necrotizing pneumonia after blood cultures are obtained. Will gently hydrate her and continue her other medications. We'll keep a watch on the mildly elevated alkaline phosphatase. At this point I don't think she needs stress dose steroids as she is mentating, doesn't have evidence of any organ dysfunction and tends to run low blood pressure. However will watch her pressure closely and put on DVT prophylaxis and follow-up. Radhames Ray MD 10/12/17 0841: Review of Systems Review of Systems Constitutional: Reports: see HPI. EENTM: Reports: no symptoms. Cardiovascular: Reports: no symptoms. Respiratory: Reports: see HPI. GI: Reports: no symptoms. Genitourinary: Reports: no symptoms. Musculoskeletal: Reports: no symptoms. Skin: Reports: no symptoms. Neurological/Psychological: Reports: no symptoms. Hematologic/Endocrine: Reports: no symptoms. Immunologic/Allergic: Reports: no symptoms. All Other Systems: Reviewed and Negative Exam & Diagnostic Data Last 24 Hrs of Vital Signs/I&O Vital Signs Date Time Temp Pulse Resp B/P B/P Pulse O2 O2 Flow FiO2 Mean Ox Delivery Rate 10/12 1638 68 22 101/61 99 Nasal 2.0L Cannula 10/12 1447 98.8 76 22 96/60 96 Room Air 10/12 1341 98.8 78 20 102/59 97 Nasal 2.0L Cannula 10/12 1257 84 20 90/58 96 Nasal 2.0L Cannula 10/12 1134 94 Nasal 2.0L Cannula 10/12 1123 99.3 24 96 Nasal 2.0L Cannula 10/12 1105 98.4 24 96 Nasal 2.0L Cannula 10/12 1008 88 24 103/68 92 Room Air Room Air Intake & Output 10/12 1600 10/12 0800 10/12 0000 Intake Total 2600 Output Total Balance 2600 Intake, IV 2600 Patient 63.503 kg Weight Weight Reported by Patient Measurement Method Physical Exam General Appearance Alert, Oriented X3, Cooperative, Mild Distress Skin No Rashes Skin Temp/Moisture Exam: Hot/Diaphoretic Sepsis Skin Exam (color): Pale HEENT no dental cavitations Cardiovascular Regular Rate, Normal S1, Normal S2 Lungs rhoncorous with crackles Abdomen Normal Bowel Sounds, Soft, No Tenderness Extremities No Edema, Normal Pulses, No Tenderness/Swelling Sepsis Peripheral Pulse Location: Dorsalis Pedis Sepsis Peripheral Pulse Exam: Normal Sepsis Cap Refill Exam: <2 Sec Core Measures/Misc (12/29) Sepsis (View protocol) If YES complete Sepsis Event Note If YES complete Sepsis Event Note Resident Review Statement Resident Statement: examined this patient, discussed with spring intern, agreed with spring intern, discussed with family, reviewed EMR data (avail), discussed with nursing , reviewed images Other Findings: Ms. Hess is a 52-year-old female with past medical history of asthma, spinal stenosis, rheumatoid arthritis, anxiety, depression, opioid dependence on 80 mg methadone, obesity, current smoking, and IV drug use who presents with fatigue and productive cough. The patient was recently treated in July for community acquired pneumonia treated with doxycycline. Afterwards, she improved. A few weeks ago she started feeling fatigued and ill. She saw her PCP who did not make any recommendations. She came in today because her sister insisted. She states says that her cough was productive and was blood-tinged at times. She has recently used IV drugs this year including heroin. She denies any fever, chills, shortness of breath, chest pain, dull pain, dysuria, nausea, vomiting, diarrhea, rash, sick contacts, recent travel, or incarceration. Patient is a current smoker and denies alcohol use. On presentation, her vital signs were T 98.4, HR 88, RR 24, BP 103/68, saturating 90% on room air. Laboratories were significant for white blood cell count 18.9, hemoglobin 9.1, MCV 73.7, platelets 507, alkaline phosphatase 148, troponin less than 0.01. CTA shows a right upper lobe consolidation with cavitation. Overall, the patient's clinical presentation and imaging suggest a bacterial pneumonia. However, given that the lesion appears cavitated on CT imaging in combination with her recent IV drug use there is concern for tuberculosis. Problem list: 1. Sepsis secondary to cavitary pneumonia 2. Microcytic anemia Plan: -Infectious disease consult -Vancomycin, ceftriaxone, and azithromycin -Negative pressure isolation room -AFP 3 -Sputum and blood cultures -Strep and Legionella urinary antigens -Urine toxicology -Iron studies -IV fluid hydration -Continue home medications -Reconcile methadone dose tomorrow DVT prophylaxis with enoxaparin Regular diet Full code
--- NOTE | 2017-10-12 17:02 | Admission Certification ---
Admission Certification Certification Statement - As attending physician, I certify that at the time of - admission, based on clinical presentation, severity of - symptoms, need for further diagnostic testing and - therapeutic interventions, and risk of adverse outcomes - without in-hospital treatment, in my clinical assessment, - this patient requires an acute hospital stay for a minimum - of two nights or longer. I have also considered psychsocial - factors such as support system, advanced age, financial - issues, cognitive issues, and failed out-patient treatments, - past re-admission history, safety of patient, and lack of - compliance as applicable. Specific rationale supporting this admission is: ACUTE CAVITARY PNEUMONIA
[2017-10-12 19:30] VITALS: BP 90/56
[2017-10-13 06:03] VITALS: BP 92/68
[2017-10-13 07:29] LABS: ABSOLUTE BASOPHIL COUNT 0 /CUMM (0.0-0.2); ABSOLUTE EOSINOPHIL COUNT 0 /CUMM (0.0-0.7); ABSOLUTE GRANULOCYTE CT 11.2 /CUMM (1.4-6.5); ABSOLUTE LYMPH COUNT 1.1 /CUMM (1.2-3.4); ABSOLUTE MONOCYTE COUNT 0.2 /CUMM (0.10-0.60); BASOPHIL % 0 % (0.0-2.0); EOSINOPHIL % 0 % (0-5); HEMATOCRIT 26.4 % (37-47); MEAN CORPUSCULAR HGB CONC 32.2 G/DL (33.0-37.0); MEAN CORPUSCULAR VOLUME 74.7 FL (81.0-99.0); MEAN PLATELET VOLUME 8.2 FL (7.4-10.4); PLATELET COUNT 441 /CUMM (130-400); RBC DISTRIBUTION WIDTH 18.7 % (11.5-14.5); RED BLOOD CELL CT 3.53 /CUMM (4.20-5.40); WHITE BLOOD CELL COUNT 12.5 /CUMM (4.8-10.8)
--- NOTE | 2017-10-13 07:36 | PN- Housestaff ---
See Addendum Subjective Follow-up For: RIGHT UPPER LOBE PNEUMONIA Complaints: no complaints Subjective: No acute events overnight. Patient states she was able to sleep through the night. She reports continued coughing with sputum production. Denies fever, chills, n/v/d, chest pain, SOB, abdominal pain. Review of Systems Constitutional: Reports: see HPI. Objective Last 24 Hrs of Vital Signs/I&O Vital Signs Date Time Temp Pulse Resp B/P B/P Pulse O2 O2 Flow FiO2 Mean Ox Delivery Rate 10/13 0603 97.7 65 18 92/68 97 Nasal 2.0L Cannula 10/13 0000 99 Nasal 2.0L Cannula 10/12 1930 Nasal Cannula 10/12 1930 97.9 69 18 90/56 99 Nasal 2.0L Cannula 10/12 1758 97.3 72 18 97/58 99 Nasal 2.0L Cannula 10/12 1638 68 22 101/61 99 Nasal 2.0L Cannula 10/12 1447 98.8 76 22 96/60 96 Room Air 10/12 1341 98.8 78 20 102/59 97 Nasal 2.0L Cannula 10/12 1257 84 20 90/58 96 Nasal 2.0L Cannula 10/12 1134 94 Nasal 2.0L Cannula 10/12 1123 99.3 24 96 Nasal 2.0L Cannula 10/12 1105 98.4 24 96 Nasal 2.0L Cannula 10/12 1008 88 24 103/68 92 Room Air Room Air Intake & Output 10/13 0800 07/02 0000 07/01 1600 Intake Total 700 449 9551 Output Total 800 Balance 840 -600 2600 Intake, IV 086 410 8518 Intake, Oral 240 50 Output, Urine 800 Patient 146 lb 140 lb Weight Weight Bed scale Reported by Patient Measurement Method Physical Exam General Appearance: Alert, Oriented X3, Cooperative, No Acute Distress Skin: No Rashes, No Breakdown Skin Temp/Moisture Exam: Warm/Dry HEENT: Atraumatic, PERRLA Neck: Supple Cardiovascular: Regular Rate, Normal S1, Normal S2, No Murmurs Lungs: decreased breath sounds RUL; rest of lung field clear. Abdomen: Normal Bowel Sounds, Soft, No Tenderness Neurological: Normal Tone, Sensation Intact Extremities: Normal Pulses, No Tenderness/Swelling Assessment/Plan Assessment: 52 year old female with PMH asthma, spinal stenosis, RA, anxiety, opioid dependence, current smoker, IV drug use admitted for RUL cavitary PNA. Patient is currently on TB precautions until sputum cx result. Urine specimen resulted negative for strep pneumoniae and legionella. #Cavitary PNA -ID consulted: IV Unasyn started (stopped Ceftriaxone/Azithromycin/Vancomycin) -Follow up sputum cultures Chronic illness -continue home medications DVT prophylaxis: Lovenox Problem List: 1. Pneumonia Pain Ratin Pain Location: none Pain Goal: Remain pain free Pain Plan: see A/P Tomorrow's Labs & Rationales: cbc, bep
[2017-10-13 08:17] LABS: GRANULOCYTE % 89.7 % (42.2-75.2)
[2017-10-13 09:49] VITALS: BP 102/62
--- NOTE | 2017-10-13 12:20 | Cons- Infect Disease ---
General Information and HPI Consulting Request Date of Consult: 10/13/17 Requested By: Esteban Alcantara MD Reason for Consult: Pneumonia right upper lobe Source of Information: patient, old records History of Present Illness: This is a 52-year-old woman with a history of IV drug abuse, most recently several months prior to admission, active cocaine and tobacco smoker, opioid dependence, maintained on methadone, with a history of COPD, maintained on prn oxygen and noncompliant with CPAP, rheumatoid arthritis, maintained on 2 1/2 mg of prednisone daily, and spinal stenosis, hospitalized 2 months prior to admission with a right upper lobe pneumonia, treated with Ceftriaxone and Azithromycin and discharged after 3 days on Doxycycline for 1 week, with MSSA isolated from her sputum culture, with a follow-up chest x-ray 2 weeks after discharge revealing improved aeration with persistent airspace disease, admitted on October 12 with 1-2 weeks of increasing lethargy, cough, productive of yellow and , occasionally, blood-tinged sputum, sweats and decreased p.o. intake. On admission she was afebrile. Laboratory data revealed a white blood cell count of 19,000, BUN/creatinine 12 and 0.6, alkaline phosphatase 148. Urinalysis 1-3 RBC/1-3 WBCs. CTA of the chest revealed right upper lobe dense airspace consolidation with superimposed cystic changes, with a small air-fluid level, with no pleural effusion. She was given 1 dose of Solumedrol and then placed on prednisone. She was also given Ceftriaxone and Azithromycin, with Vancomycin subsequently added. She has remained afebrile (on steroids) since admission. She does feel improved today with increased alertness. She reports no recent travel. She has no history of TB or TB exposure exposure, but does get skin tested annually in the methadone program and has been negative. She does have 2 cats at home. Allergies/Medications Allergies: Coded Allergies: NO KNOWN ALLERGIES (01/13/13) Home Med List: Albuterol Sulfate (Proair Hfa) 90 MCG HFA.AER.AD 2 PUF INH Q4-6 PRN PRN COPD . Benzonatate (Tessalon Perle) 100 MG CAPSULE 100 MG PO COUGH (Reported) Budesonide/Formoterol Fumarate (Symbicort 160-4.5 Mcg Inhaler) 160 MCG-4.5 MCG/ ACTUATION HFA.AER.AD 2 PUF INH BID COPD . Diclofenac Sodium 75 MG TABLET.DR 1 TAB PO BID PAIN/INFLAMMATION (Reported) Fluticasone Propionate 50 MCG/ACTUATION SPRAY.SUSP 1 SPRAY NASB DAILY NASAL CONGESTION (Reported) Methadone HCl 10 MG/ML ORAL.CONC 80 MG PO DAILY MENTAL HEALTH/CHRONIC PAIN ( Reported) Prednisone 2.5 MG TABLET 1 TAB PO DAILY RHEUMATOID ARTHRITIS (Reported) Pregabalin (Lyrica) 150 MG CAPSULE 1 CAP PO TID NERVE PAIN (Reported) Tiotropium [place] (Spiriva) 18 MCG CAP.W.DEV 1 PUF INH DAILY COPD . Past History Travel History Traveled to [place] past 21 day No Medical History Blood Transfusion Hx: No Neurological: NONE EENT: allergies Cardiovascular: NONE Respiratory: asthma, COPD, pneumonia Gastrointestinal: NONE Hepatic: NONE Renal: NONE Musculoskeletal: rheumatoid arthritis, spinal stenosis Psychiatric: anxiety, depression, opioid dependence Endocrine: NONE Blood Disorders: NONE Cancer(s): NONE [employer] SUPER[employer]OR/Reproductive: NONE History of MRSA: No History of VRE: No History of CDIFF: No Isolation History: Airborne Surgical History Surgical History: none Family History Relations & Conditions If Any: No Known Family History. Psychosocial History Where Do You Live? Home Services at Home: None Smoking Status: Current Everyday Smoker ETOH Use: denies use Illicit Drug Use: METHADONE MAINTANENCE Living Will? no Functional Ability ADLs Independent: dressing, eating, toileting, bathing. Ambulation: independent, SEE hpi FOR DETAILS IADLs Independent: shopping, housework, finances, food prep, telephone, transportation , medication admin. Review of Systems Review of Systems All Other Systems: Reviewed and Negative Exam & Diagnostic Data Last 24 Hrs of Vital Signs/I&O Vital Signs Date Time Temp Pulse Resp B/P B/P Pulse O2 O2 Flow FiO2 Mean Ox Delivery Rate 10/13 0949 102/62 10/13 0800 Nasal 2.0L Cannula 10/13 0603 97.7 65 18 92/68 97 Nasal 2.0L Cannula 10/13 0000 99 Nasal 2.0L Cannula 10/12 1930 Nasal Cannula 10/12 1930 97.9 69 18 90/56 99 Nasal 2.0L Cannula 10/12 1758 97.3 72 18 97/58 99 Nasal 2.0L Cannula 10/12 1638 68 22 101/61 99 Nasal 2.0L Cannula 10/12 1447 98.8 76 22 96/60 96 Room Air 10/12 1341 98.8 78 20 102/59 97 Nasal 2.0L Cannula 10/12 1257 84 20 90/58 96 Nasal 2.0L Cannula Intake & Output 10/13 1600 10/13 0800 10/13 0000 Intake Total 840 200 Output Total 800 Balance 840 -600 Intake, IV 600 150 Intake, Oral 240 50 Output, Urine 800 Patient 146 lb Weight Weight Bed scale Measurement Method Physical Exam Other Physical Findings: She is awake and alert in no acute distress. She is afebrile on steroids. Skin reveals no rash. HEENT exam is negative. Neck is supple with no adenopathy. Lungs are clear. Heart regular rhythm with no murmur. Abdomen is soft, nontender with positive bowel sounds. Back no CVA tenderness. Extremities no cyanosis, clubbing or edema. Neuro is without focality. Last 24 Hours of Lab Results: Laboratory Tests 10/13 Chemistry Sodium (137 - 145 mmol/L) 143 Potassium (3.5 - 5.1 mmol/L) 5.0 Chloride (98 - 107 mmol/L) 106 Carbon Dioxide (22 - 30 mmol/L) 26 Anion Gap (5 - 16) 11 BUN (7 - 17 mg/dL) 13 Creatinine (0.5 - 1.0 mg/dL) 0.5 Estimated GFR (>60 ml/min) > 60 BUN/Creatinine Ratio (7 - 25 %) 26.0 H Total Bilirubin (0.2 - 1.3 mg/dL) 0.1 L Direct Bilirubin (< 0.4 mg/dL) 0.1 AST (14 - 36 U/L) 30 ALT (9 - 52 U/L) 32 Alkaline Phosphatase (<127 U/L) 106 Total Protein (6.3 - 8.2 g/dL) 5.8 L Albumin (3.5 - 5.0 g/dL) 2.3 L Hematology CBC w Diff NO MAN DIFF REQ WBC (4.8 - 10.8 /CUMM) 12.5 H RBC (4.20 - 5.40 /CUMM) 3.53 L Hgb (12.0 - 16.0 G/DL) 8.5 L Hct (37 - 47 %) 26.4 L MCV (81.0 - 99.0 FL) 74.7 L MCH (27.0 - 31.0 PG) 24.0 L MCHC (33.0 - 37.0 G/DL) 32.2 L RDW (11.5 - 14.5 %) 18.7 H Plt Count (130 - 400 /CUMM) 441 H MPV (7.4 - 10.4 FL) 8.2 Gran % (42.2 - 75.2 %) 89.7 H Lymphocytes % (20.5 - 51.1 %) 8.5 L Monocytes % (1.7 - 9.3 %) 1.8 Eosinophils % (0 - 5 %) 0 Basophils % (0.0 - 2.0 %) 0 Absolute Granulocytes (1.4 - 6.5 /CUMM) 11.2 H Absolute Lymphocytes (1.2 - 3.4 /CUMM) 1.1 L Absolute Monocytes (0.10 - 0.60 /CUMM) 0.2 Absolute Eosinophils (0.0 - 0.7 /CUMM) 0 Absolute Basophils (0.0 - 0.2 /CUMM) 0 Toxicology Urine Opiates Screen (>2000 NG/ML) < 100 Methadone Screen (>300 NG/ML) > 735 H Barbiturate Screen (>200 NG/ML) < 60 Ur Phencyclidine Scrn (>25 NG/ML) < 6.00 Amphetamines Screen (>1000 NG/ML) < 100 U Benzodiazepines Scrn (>200 NG/ML) < 85 Urine Cocaine Screen (>300 NG/ML) > 1000 H Urine Cannabis Screen (>50 NG/ML) < 5.00 Urines Urine Color (YEL,AMB,STR) YEL Urine Clarity (CLEAR) CLEAR Urine pH (5.0 - 8.0) 6.0 Ur Specific [place] (1.001 - 1.035) 1.015 Urine Protein (NEG,<30 MG/DL) NEG Urine Ketones (NEG) NEG Urine Nitrite (NEG) NEG Urine Bilirubin (NEG) NEG Urine Urobilinogen (0.1 - 1.0 EU/dl) 0.2 Ur Leukocyte Esterase (NEG) NEG Ur Microscopic SEDIMENT EXAMINED Urine RBC (0 - 5 /HPF) 1-3 Urine WBC (0 - 2 /HPF) 1-3 H Ur Epithelial Cells (NONE,FEW) FEW Urine Bacteria (NEG/NONE) FEW H Urine Mucus (FEW,NONE) RARE Urine Hemoglobin (NEG) SMALL H Urine Glucose (N MG/DL) NEG 10/12 1344 Chemistry Lactic Acid Cancelled Last 24 Hours of Ritchie Results: Blood cultures October 12 negative Sputum culture October 12 pending, with gram stain revealing many white blood cells and many gram-positive cocci Sputum AFB October 13 pending Urine strep pneumo antigen and Legionella antigen October 12 negative Diagnostic Data Recent Imaging Findings: CTA of the chest revealed right upper lobe dense airspace consolidation with superimposed cystic changes, with a small air-fluid level, with no pleural effusion. Assessment/Plan Assessment/Plan Impression: This is a 52-year-old woman with a history of IV drug abuse, most recently several months prior to admission, active cocaine and tobacco smoker, opioid dependence, maintained on methadone, with a history of COPD, maintained on prn oxygen, rheumatoid arthritis, maintained on 2 1/2 mg of prednisone daily, hospitalized 2 months prior to admission with a right upper lobe pneumonia secondary to MSSA, admitted on October 12 with 1-2 weeks of increasing lethargy, cough, productive of yellow and, occasionally, blood-tinged sputum, sweats and decreased p.o. intake, found to be afebrile with a leukocytosis and with a CT of the chest revealing right upper lobe dense airspace consolidation with superimposed cystic changes, with a small air-fluid level. Her presentation is suggestive of a necrotizing pneumonia, which most likely represents progression of her previous pneumonia given the location of the density and the chronicity of her symptoms. Suspect this may all be secondary to Staph aureus, but cannot rule out an anaerobic component given the CT appearance. The CT scan does reveal an air-fluid level and, if her sputum does not identify any specific pathogen, aspiration of the fluid can be considered and this has been discussed with IR. Her chest x-ray is not suggestive of TB nor does she have any history to suggest this; therefore this seems less likely. Her HIV status is not known and, given her history of IV drug abuse, this should be checked. Suggestion: 1. Would check an HIV and Hepatitis C serology 2. Follow-up sputum culture and AFBs 3. Can discontinue Airborne isolation 4. Would consider CT-guided aspiration of the fluid in her right upper lobe if above negative 5. Discontinue Vancomycin, ceftriaxone and Azithromycin 6. Begin Unasyn 3 g IV every 6 hours pending above Consult Acknowledgment - Thank you for your consult request.
[2017-10-13 19:34] VITALS: BP 90/60
[2017-10-13 22:22] VITALS: BP 98/60
[2017-10-14 05:40] VITALS: BP 110/60
--- NOTE | 2017-10-14 10:59 | PN- Infect Dx ---
Subjective Subjective: T-max 101 on steroids. She feels well with no shortness of breath or chest pain. Her cough has improved, with no further hemoptysis Objective Last 24 Hrs of Vital Signs/I&O Vital Signs Date Time Temp Pulse Resp B/P B/P Pulse O2 O2 Flow FiO2 Mean Ox Delivery Rate 10/14 0520 98.7 10/14 0615 98.7 10/14 0540 96 24 110/60 93 Room Air 10/14 0510 101.0 10/14 0503 101.0 10/14 0000 93 Room Air 10/13 2222 98.8 82 20 98/60 93 Room Air 10/13 1934 98.4 81 18 90/60 92 Room Air 10/13 1600 Room Air Intake & Output 10/14 1600 10/14 0800 10/14 0000 Intake Total 360 240 Output Total Balance 360 240 Intake, IV 120 120 Intake, Oral 240 120 Physical Exam Other Physical Findings: She appears comfortable in no acute distress Lungs crackles on the right Heart regular rhythm with no murmur Extremities no cyanosis, clubbing or edema Results Last 24 Hours of Lab Results: Laboratory Tests 10/14 909 Hematology CBC w Diff MAN DIFF ORDERED WBC (4.8 - 10.8 /CUMM) 15.1 H RBC (4.20 - 5.40 /CUMM) 3.76 L Hgb (12.0 - 16.0 G/DL) 9.0 L Hct (37 - 47 %) 28.1 L MCV (81.0 - 99.0 FL) 74.7 L MCH (27.0 - 31.0 PG) 24.0 L MCHC (33.0 - 37.0 G/DL) 32.2 L RDW (11.5 - 14.5 %) 19.3 H Plt Count (130 - 400 /CUMM) 570 H MPV (7.4 - 10.4 FL) 8.6 Gran % (42.2 - 75.2 %) 83.4 H Lymphocytes % (20.5 - 51.1 %) 11.8 L Monocytes % (1.7 - 9.3 %) 4.7 Eosinophils % (0 - 5 %) 0.1 Basophils % (0.0 - 2.0 %) 0 Absolute Granulocytes (1.4 - 6.5 /CUMM) 12.6 H Segmented Neutrophils (42.2 - 75.2 %) Pending Absolute Lymphocytes (1.2 - 3.4 /CUMM) 1.8 Absolute Monocytes (0.10 - 0.60 /CUMM) 0.7 H Absolute Eosinophils (0.0 - 0.7 /CUMM) 0 Absolute Basophils (0.0 - 0.2 /CUMM) 0 Last 24 Hours of Ritchie Results: Sputum culture October 12 positive for Staph aureus, sensitivities pending Blood cultures 2 October 12 negative Sputum AFB 3 pending Assessment/Plan ID Impression: Stable, though she was febrile this morning and her white blood cell count has increased, on Unasyn, Day 2 of treatment for what appears to be a necrotizing pneumonia of the right lung, with her sputum culture again positive for Staph aureus. This likely represents a residual infection from her previous pneumonia 2 months prior to admission but, given her fever and increased white blood cell count, the possibility of MRSA must be considered. Of note her Hepatitis C antibody is positive and this will require further evaluation and management. Suggestion: 1. Follow-up final sputum culture 2. Follow-up sputum AFBs and discontinue Airborne isolation if negative 3. GI referral for her positive Hepatitis C (can do as an outpatient) 4. Discontinue Unasyn 5. Restart vancomycin 1 g IV every 12 hours pending above
[2017-10-14 11:16] LABS: ABSOLUTE BASOPHIL COUNT 0 /CUMM (0.0-0.2); ABSOLUTE EOSINOPHIL COUNT 0 /CUMM (0.0-0.7); ABSOLUTE GRANULOCYTE CT 12.6 /CUMM (1.4-6.5); ABSOLUTE LYMPH COUNT 1.8 /CUMM (1.2-3.4); ABSOLUTE MONOCYTE COUNT 0.7 /CUMM (0.10-0.60); BASOPHIL % 0 % (0.0-2.0); EOSINOPHIL % 0.1 % (0-5); GRANULOCYTE % 83.4 % (42.2-75.2); HEMATOCRIT 28.1 % (37-47); MEAN CORPUSCULAR HGB CONC 32.2 G/DL (33.0-37.0); MEAN CORPUSCULAR VOLUME 74.7 FL (81.0-99.0); MEAN PLATELET VOLUME 8.6 FL (7.4-10.4); PLATELET COUNT 570 /CUMM (130-400); RBC DISTRIBUTION WIDTH 19.3 % (11.5-14.5); RED BLOOD CELL CT 3.76 /CUMM (4.20-5.40); WHITE BLOOD CELL COUNT 15.1 /CUMM (4.8-10.8)
--- NOTE | 2017-10-14 12:56 | PN- Housestaff ---
See Addendum Subjective Follow-up For: cavitary pneumonia RUL Complaints: no complaints Subjective: No acute events overnight. Patient states she is feeling better each day and has less cough and sputum production. She was a bit diaphoretic this morning, but states she feels okay. Denies fever, chills, n/v/d, chest pain, SOB. Review of Systems Constitutional: Reports: see HPI. Objective Last 24 Hrs of Vital Signs/I&O Vital Signs Date Time Temp Pulse Resp B/P B/P Pulse O2 O2 Flow FiO2 Mean Ox Delivery Rate 10/14 08 93 Room Air 10/14 0620 98.7 10/14 0615 98.7 10/14 0540 96 24 110/60 93 Room Air 10/14 0510 101.0 10/14 0503 101.0 10/14 0000 93 Room Air 10/13 2222 98.8 82 20 98/60 93 Room Air 10/13 1934 98.4 81 18 90/60 92 Room Air 10/13 1600 Room Air Intake & Output 10/14 1600 10/14 0800 10/14 0000 Intake Total 360 240 Output Total Balance 360 240 Intake, IV 120 120 Intake, Oral 240 120 Physical Exam General Appearance: Alert, Oriented X3, Cooperative, No Acute Distress Skin: No Rashes Skin Temp/Moisture Exam: Warm/Dry HEENT: Atraumatic, PERRLA Neck: Supple Cardiovascular: Regular Rate, Normal S1, Normal S2 Lungs: decreased breath sounds right apex; improved air movement compared to previous exam Abdomen: Normal Bowel Sounds, Soft, No Tenderness Extremities: No Edema, Normal Pulses Assessment/Plan Assessment: 52 year old female with PMH asthma, RA, anxiety, depression, opioid dependence on 80mg methadone, current smoker, IV drug user admitted for cavitary pneumonia. She has continued to improve symptomatically over her hospital course. She is currently receiving IV unasyn and will continue until sensitivities return on sputum cx growing staph aureus. Will also continue TB precautions until results from sputum AFB cx return though TB is unlikely. Patient is being followed by ID and we appreciate their recommendations. #Cavitary Pneumonia growing Staph aureus -IV Unasyn -Will change to IV Vanc if appropriate when sensitivities result -Anticipate discharge home with self care with one-two days #chronic illnesses -continue home meds including methadone DVT Prophylaxis: lovenox, ALPS, ambulation (patient refused today's dose of lovenox) Problem List: 1. Pneumonia Pain Ratin Pain Location: none Pain Goal: Remain pain free Pain Plan: see a/p Tomorrow's Labs & Rationales: cbc
[2017-10-14 14:19] VITALS: BP 110/78
[2017-10-14 22:28] VITALS: BP 102/66
[2017-10-15 06:20] VITALS: BP 114/60
[2017-10-15 08:26] LABS: ABSOLUTE BASOPHIL COUNT 0 /CUMM (0.0-0.2); ABSOLUTE EOSINOPHIL COUNT 0.1 /CUMM (0.0-0.7); ABSOLUTE GRANULOCYTE CT 9.9 /CUMM (1.4-6.5); ABSOLUTE LYMPH COUNT 2.2 /CUMM (1.2-3.4); ABSOLUTE MONOCYTE COUNT 0.9 /CUMM (0.10-0.60); BASOPHIL % 0.3 % (0.0-2.0); EOSINOPHIL % 0.4 % (0-5); GRANULOCYTE % 75.4 % (42.2-75.2); HEMATOCRIT 26.6 % (37-47); MEAN CORPUSCULAR HGB 24.1 PG (27.0-31.0); MEAN CORPUSCULAR HGB CONC 32.4 G/DL (33.0-37.0); MEAN CORPUSCULAR VOLUME 74.4 FL (81.0-99.0); MEAN PLATELET VOLUME 7.9 FL (7.4-10.4); PLATELET COUNT 548 /CUMM (130-400); RBC DISTRIBUTION WIDTH 19.3 % (11.5-14.5); RED BLOOD CELL CT 3.57 /CUMM (4.20-5.40); WHITE BLOOD CELL COUNT 13.1 /CUMM (4.8-10.8)
--- NOTE | 2017-10-15 08:32 | PN- Housestaff ---
See Addendum Subjective Follow-up For: cavitary pneumonia RUL Complaints: no complaints Subjective: No overnight events. Patient looks much improved this morning eating pancakes for breakfast and in a pleasant mood. She continues to endorse decreased sputum production and cough. Subjectively she is feeling better and ready to come home. Denies fever, chills, n/v/d, chest pain, SOB, abd pain. Review of Systems Constitutional: Reports: see HPI. Objective Last 24 Hrs of Vital Signs/I&O Vital Signs Date Time Temp Pulse Resp B/P B/P Pulse O2 O2 Flow FiO2 Mean Ox Delivery Rate 10/15 0620 99.0 88 18 114/60 95 Room Air 10/15 0035 97.9 96 Room Air 10/15 0000 Room Air 10/14 2304 99.2 10/14 2245 99.2 10/14 2228 101.0 91 18 102/66 91 10/14 2143 101.0 10/14 1600 92 Room Air 10/14 1419 98.2 85 20 110/78 92 Room Air Intake & Output 10/15 1600 10/15 0800 10/15 0000 Intake Total 590 180 Output Total Balance 590 180 Intake, IV 250 Intake, Oral 340 180 Physical Exam General Appearance: Alert, Oriented X3, Cooperative, No Acute Distress Skin: No Rashes Skin Temp/Moisture Exam: Warm/Dry HEENT: Atraumatic, PERRLA Neck: Supple Cardiovascular: Regular Rate, Normal S1, Normal S2, No Murmurs Lungs: improved air movement as compared to previous exam; slight crackles RUL Abdomen: Normal Bowel Sounds, Soft, No Tenderness Extremities: No Edema, Normal Pulses Assessment/Plan Assessment: 52 year old female with PMH recent PNA treated in July and Feb prior to that, asthma, current smoker, RA, anxiety, depression, opioid dependence on Methadone 80mg daily, recent h/o IV drug use admitted for RUL cavitary PNA. On sputum culture she was found to have staph aureus; sensitivities pending. AFB smear was negative and patient was taken off TB precautions on 10/14. She is currently being treated with IV vancomycin in anticipation of MRSA as her WBC count was rising while on IV Unasyn. Today her WBC as decreased and she is clinically much improved. #Staph aureus Cavitary PNA -IV vancomycin #Positive Hep C ab -Will refer to GI as outpatient for further diagnostics #chronic illnesses -continue home meds Dispo: anticipated discharge home today or tomorrow with continued PO abx DVT prophylaxis: lovenox/ ALPS/ ambulation Problem List: 1. Pneumonia Pain Ratin Pain Location: none Pain Goal: Remain pain free Pain Plan: see a/p Tomorrow's Labs & Rationales: cbc if still inpatient
[2017-10-15 14:00] VITALS: BP 80/50
[2017-10-15 15:43] VITALS: BP 90/45
[2017-10-15 21:55] VITALS: BP 90/54
[2017-10-16 06:36] VITALS: BP 90/60
--- NOTE | 2017-10-16 07:46 | PN- Housestaff ---
See Addendum Subjective Follow-up For: STAPH AUREUS CAVITARY PNEUMONIA Complaints: no complaints Subjective: Patient continues to do well and feels ready to go home with continued abx treatment as directed. She states she continues to cough and have sputum production, but this is much less than at admission. Denies fever, chills, n/v/ d, chest pain, SOB, abd pain. Review of Systems Constitutional: Reports: see HPI. Objective Last 24 Hrs of Vital Signs/I&O Vital Signs Date Time Temp Pulse Resp B/P B/P Pulse O2 O2 Flow FiO2 Mean Ox Delivery Rate 10/16 0636 99.6 82 20 90/60 93 Room Air 10/16 0000 Room Air 10/15 2155 98.6 78 18 90/54 93 / 1543 80 18 90/45 94 / 1400 98.7 79 20 80/50 94 Room Air Intake & Output 10/16 0800 / 0000 10/15 1600 Intake Total 608 914 4074 Output Total Balance 615 578 2860 Intake, IV 250 250 Intake, Oral 350 400 800 Physical Exam General Appearance: Alert, Oriented X3, Cooperative, No Acute Distress Skin: No Rashes Skin Temp/Moisture Exam: Warm/Dry HEENT: Atraumatic, PERRLA Neck: Supple Cardiovascular: Regular Rate, Normal S1, Normal S2 Lungs: RUL scant crackles. Other lung abraham CTA Abdomen: Normal Bowel Sounds, Soft, No Tenderness Extremities: No Edema, Normal Pulses Assessment/Plan Assessment: 52 year old female with PMH recent PNA treated in July and Feb prior to that, asthma, current smoker, RA, anxiety, depression, opioid dependence on Methadone 80mg daily, recent h/o IV drug use admitted for RUL cavitary PNA. On sputum culture she was found to have staph aureus; sensitivities pending. AFB smear was negative and patient was taken off TB precautions on 10/14. She is currently being treated with IV vancomycin in anticipation of MRSA as her WBC count was rising while on IV Unasyn. Today her WBC as decreased and she is clinically much improved. #Staph aureus Cavitary PNA -IV vancomycin -Awaiting susceptability before able to discharge home with appropriate continued tx #Positive Hep C ab -Will refer to GI as outpatient for further diagnostics #Tobacco use disorder -Discussed smoking cessation at length this morning. She feels ready to attempt cessation. #chronic illnesses -continue home meds Dispo: anticipated discharge home today DVT prophylaxis: lovenox/ ALPS/ ambulation Problem List: 1. Pneumonia Pain Ratin Pain Location: none Pain Goal: Remain pain free Pain Plan: see a/p Tomorrow's Labs & Rationales: none
--- NOTE | 2017-10-16 11:08 | PN- Infect Dx ---
Subjective Subjective: Afebrile without complaints. She continues to have a cough, productive of clear to dark yellow sputum. She has no shortness of breath or chest pain. Objective Last 24 Hrs of Vital Signs/I&O Vital Signs Date Time Temp Pulse Resp B/P B/P Pulse O2 O2 Flow FiO2 Mean Ox Delivery Rate 10/17 635 99.6 82 20 90/60 93 Room Air 10/16 0000 Room Air 10/15 2155 98.6 78 18 90/54 93 10/15 1543 80 18 90/45 94 10/15 1400 98.7 79 20 80/50 94 Room Air Intake & Output 10/16 1600 10/16 0800 10/16 0000 Intake Total 600 400 Output Total Balance 600 400 Intake, IV 250 Intake, Oral 350 400 Physical Exam Other Physical Findings: She appears comfortable in no acute distress Lungs are clear Heart regular rhythm with no murmur Results Last 24 Hours of Lab Results: Laboratory Tests 10/16 723 Hematology CBC w Diff NO MAN DIFF REQ WBC (4.8 - 10.8 /CUMM) 13.1 H RBC (4.20 - 5.40 /CUMM) 3.57 L Hgb (12.0 - 16.0 G/DL) 8.6 L Hct (37 - 47 %) 26.6 L MCV (81.0 - 99.0 FL) 74.4 L MCH (27.0 - 31.0 PG) 24.1 L MCHC (33.0 - 37.0 G/DL) 32.4 L RDW (11.5 - 14.5 %) 19.3 H Plt Count (130 - 400 /CUMM) 548 H MPV (7.4 - 10.4 FL) 7.9 Gran % (42.2 - 75.2 %) 75.4 H Lymphocytes % (20.5 - 51.1 %) 16.9 L Monocytes % (1.7 - 9.3 %) 7.0 Eosinophils % (0 - 5 %) 0.4 Basophils % (0.0 - 2.0 %) 0.3 Absolute Granulocytes (1.4 - 6.5 /CUMM) 9.9 H Absolute Lymphocytes (1.2 - 3.4 /CUMM) 2.2 Absolute Monocytes (0.10 - 0.60 /CUMM) 0.9 H Absolute Eosinophils (0.0 - 0.7 /CUMM) 0.1 Absolute Basophils (0.0 - 0.2 /CUMM) 0 Last 24 Hours of Ritchie Results: Sputum culture October 12 positive for Staph aureus sensitive to Oxacillin and yeast Sputum AFB 3 negative Blood cultures 2 October 12 negative Assessment/Plan ID Impression: Clinically improved, with no further fevers and with her white blood cell count yesterday slightly decreased from the previous day, on Vancomycin, Day 4 of treatment for a necrotizing pneumonia of the right lung secondary to Staph aureus. Her Staph aureus is sensitive to Oxacillin, suggesting that this does represent a residual infection from her previous pneumonia 2 months prior to admission and, given the sensitivities, her antibiotics can again be adjusted. Given the concern for a necrotizing pneumonia feel that anaerobes should be covered as well. Her Hepatitis C antibody is positive and this will require outpatient evaluation and management. Suggestion: 1. GI referral for her positive Hepatitis C (as an outpatient) 2. Follow-up chest x-ray as an outpatient 3. Discontinue Vancomycin 4. Begin Augmentin 875 mg p.o. every 12 hours to plan on a total of 4 weeks treatment
--- NOTE | 2017-10-16 11:10 | Discharge Summary ---
Visit Information Visit Dates Admission Date: 10/12/17 Discharge Date: 10/16/17 Hospital Course Course Attending Physician: Esteban Alcantara MD [facility]: Ms. Torre is a 52 year old female with PMH recent PNA treated in July and Feb prior to that, asthma, current smoker, RA, anxiety, depression, opioid dependence on Methadone 80mg daily, recent h/o IV drug use admitted for RUL cavitary PNA. Admission Data: Admission VS: T 98.8 P76 RR22 BP96/60 O2 96%RA Admission Labs: WBC 18.9 Hbg 9.[address] chest on Admission: RUL dense airspace consolidation with superimposed cystic changes and cavitation with suggestion of air-fluid level with patent right upper lobar bronchus. She was treated for the following problem during this hospital course: 1. Necrotizing right upper lobe pneumonia 2/2 MSSA 2. Hep C antibody positive 3. Anemia of Chronic disease She was treated by the following specialist during her hospital course: 1. Infectious Disease She was initially started on Ceftriaxone and azithromycin and vancomycin and placed on TB precautions. On sputum culture she was found to have staph aureus and AFB were negative. She was then started on IV Unasyn which was changed to IV vancomycin in the setting of increasing WBC while on IV abx. ID recommended this change and the patient continued to respond to treatment well. She also was found to have a positive antibody test for Hep C. She also presented with microcytic anemia that was worked up with iron studies, folate, and b12. It was determined to be anemia of chronic disease from rheumatoid arthritis. On 10/16/17 she remained stable and deemed ready for discharge home with Augmentin 875mg PO q12hr for a total of 4 weeks per ID recommendations. She will follow up outpatient with her PCP and have a follow up CXR. She will also follow up as an outpatient with GI for the positive Hepatitis C screening exam while inpatient. Allergies: Coded Allergies: NO KNOWN ALLERGIES (01/13/13) Disposition Summary Disposition Principal Diagnosis: MSSA RUL Pneumonia Additional Diagnosis: h/o asthma/COPD and opioid dependence Discharge Disposition: home or self care Discharge Instructions General Discharge Information Code Status: Full Code Patient's Diet: regular Patient's Activity: as tolerated Follow-Up Instructions/Appts: Follow up with GI for positive Hep C antibody Follow up with your PCP and have a repeat CXR to ensure infection has cleared Continue antibiotic course for 4 weeks Medications at Discharge Discharge Medications: Continue taking these medications: Diclofenac Sodium (Diclofenac Sodium) 75 MG TABLET.DR 1 Tablet ORAL TWICE DAILY Qty = 60 Comments: NOT GIVEN IN HOSPITAL Pregabalin (Lyrica) 150 MG CAPSULE 1 Capsule ORAL THREE TIMES DAILY Qty = 90 Comments: Last Taken: 10/16/17 Time: 8:02 AM Budesonide/Formoterol Fumarate (Symbicort 160-4.5 Mcg Inhaler) 160 MCG-4.5 MCG/ ACTUATION HFA.AER.AD 2 Puff Inhale through mouth TWICE DAILY Qty = 1 Instructions: . Comments: Last Taken: 10/16/17 Time: 8:04 AM Albuterol Sulfate (Proair Hfa) 90 MCG HFA.AER.AD 2 Puff Inhale through mouth EVERY 4-6 HOURS NEEDED as needed for COPD Qty = 1 Instructions: . Comments: NOT GIVEN IN HOSPITAL Tiotropium [place] (Spiriva) 18 MCG CAP.W.DEV 1 Puff Inhale through mouth DAILY Qty = 30 Instructions: . Comments: Last Taken: 10/16/17 Time: 8:02 AM Methadone HCl (Methadone HCl) 10 MG/ML ORAL.CONC 80 Milligram ORAL DAILY Comments: Last Taken: 10/16/17 Time: 8:02 AM Fluticasone Propionate (Fluticasone Propionate) 50 MCG/ACTUATION SPRAY.SUSP 1 [place] Both sides of nose DAILY Qty = 16 Comments: Last Taken:10/16/17 Time:8:03 AM Prednisone (Prednisone) 2.5 MG TABLET 1 Tablet ORAL DAILY Qty = 30 Comments: Last Taken: 10/16/17 Time: 8:02 AM Benzonatate (Tessalon [place]) 100 MG CAPSULE 100 Milligram ORAL Comments: Last Taken:10/16/17 Time:0815 Start taking the following new medications: Amoxicillin/Potassium Clav (Augmentin 875-125 Tablet) 875 MG-125 MG TABLET 1 Tablet ORAL TWICE DAILY Qty = 50 No Refills Instructions: . Copies To: Denise Marie DO; Yanni MALONE,Raffi Mcdonough Attending MD Review Statement Documenting Attending: Esteban Alcantara MD Other Findings: The patient was seen and discussed with house staff. Agree with the above summary of care. The patient needs close follow-up of pneumonia and was discharged on Augmentin as per ID (Dr. Welch). Also incidentally had a positive Hep C Ab and this needs further evaluation by GI (needs further testing ). The patient is aware and states her prior tests have been negative.
[2017-10-16] MEDS ORDERED: AUGMENTIN 875-1 EACH PO ×2 (11:32→11:42)
--- NOTE | 2017-10-16 11:45 | Patient Discharge Instructions ---
Discharge Instructions General Discharge Information You were seen/treated for: Necrotizing pneumonia, hepatitis C antibody positive Watch for these problems: Fever, chest pain, shortness of breath Special Instructions: Please take all medications as directed. Please follow-up with gastroenterology and primary care. Diet Continue normal diet: Yes Activity Full Activity/No Limits: Yes Acute Coronary Syndrome Inclusion Criteria At DC or during hospital stay patient has or had the following: ACS DIAGNOSIS No Discharge Core Measures Meds if any: Prescribed or Continued at Discharge Meds if any: NOT Prescribed or Continued at Discharge Congestive Heart Failure Inclusion Criteria At DC or during hospital stay patient has or had the following: CHF DIAGNOSIS No Discharge Core Measures Meds if any: Prescribed or Continued at Discharge Meds if any: NOT Prescribed or Continued at Discharge Cerebrovascular accident Inclusion Criteria At DC or during hospital stay patient has or had the following: CVA/TIA Diagnosis No Discharge Core Measures Meds if any: Prescribed or Continued at Discharge Meds if any: NOT Prescribed or Continued at Discharge Venous thromboembolism Inclusion Criteria VTE Diagnosis No VTE Type NONE VTE Confirmed by (Test) NONE Discharge Core Measures - Per Current guidelines, there needs to be overlap - treatment for the first 5 days of Warfarin therapy. - If discharged on Warfarin prior to 5 days of - overlap therapy, the patient will need to be - assessed for post discharge needs including - *Post discharge parental anticoagulation - *Warfarin and/or parental anticoagulation education - *Follow up date to check INR post discharge At least 5 days overlap therapy as Inpatient No Meds if any: Prescribed or Continued at Discharge Note: Overlap Therapy is Warfarin and Anticoagulant Meds if any: NOT Prescribed or Continued at Discharge
== END 2017-10-16 12:55 | DRG 137 ==
LOC: ERH 10:04 → 2NB 14:55 → 2NA 14:55 → ERHI 14:55 → ENRESERV 17:45 → ENTRNSPT 18:50 → EDTRNSPT 18:52 → EDTRNSPTSTS 18:52 → 2NB 19:24 → CMPTRNSPT 19:25 → 2NA 19:25 → 2NB 10-13 08:20 → 2NA 10-13 15:40 → ENPENDDIS 10-16 12:11 → ENTRNSPT 10-16 12:50 → CMPTRNSPT 10-16 12:52 → 2NA 10-16 12:55
PROVIDERS: Internal Medicine; Physician Assistant
DX: J15.211 Pneumonia due to Methicillin susceptible Staphylococcus aureus (principal); J85.0 Gangrene and necrosis of lung; M06.9 Rheumatoid arthritis, unspecified; F11.20 Opioid dependence, uncomplicated; J44.0 Chronic obstructive pulmonary disease with (acute) lower respiratory infection; D50.9 Iron deficiency anemia, unspecified; R76.8 Other specified abnormal immunological findings in serum; F17.210 Nicotine dependence, cigarettes, uncomplicated; F41.9 Anxiety disorder, unspecified; F32.9 Major depressive disorder, single episode, unspecified; E66.9 Obesity, unspecified; Z68.30 Body mass index [BMI] 30.0-30.9, adult
CPT/HCPCS: 2NAP; 2NBP; 36415; 36592; 80307; 81001; 82436; 86803; 87040; 87070; 87071; 87147; 87389; 87449; 87450; 93005; 93010; 96361; 96365; 96375; J0456; J0696; J1650; J2920; J2930; J3370; J3490; J7040; J7120